=== PATIENT | female | born 1970 | race Caucasian/White ===

== ENCOUNTER → 2018-08-10 14:16 | Outpatient (BNVA) | payer MEDICAID, SELFPAY | PROVIDERS: PCP Family Medicine; Visit Provider Psychiatry & Neurology Neurology | DX: G35 Multiple sclerosis (principal); F44.5 Conversion disorder with seizures or convulsions | CPT/HCPCS: 99213 ==

== ENCOUNTER 2019-01-01 11:08 | Emergency (ER) | payer MEDICAID, SELFPAY ==
[2019-01-01 11:11] VITALS: BP 142/75; PULSE 89; RESP 20; TEMP 36.9; O2SAT 98
--- NOTE | 2019-01-01 11:31 | W.ED.GENAD ---
Discharge Plan Disposition Patient Disposition: HOME Condition: Good Discharge Details Chief Complaint: Orthopedic Clinical Impression: Right ankle sprain, Contusion Primary Care Provider: Megha Khanna ED Provider: Jay Miranda Home Meds and New Rx's Prescriptions: No Action Nexplanon 68 mg implant 1 implant SBD ONCE Qty: 1 RF: 0 lamotrigine [Lamictal] 100 mg tablet 50 mg PO BID Qty: 90 RF: 3 gabapentin 300 mg capsule 300 mg PO BID Qty: 180 RF: 3 cholecalciferol (vitamin D3) 2,000 UNIT tablet 2,500 mg PO DAILY RF: 0 alprazolam 0.5 MG tablet 0.5 mg PO ONCE PRNQty: 2 RF: 0 Discharge Instructions Instructions: Contusion in Adults (ED) Additional Instructions: Your x-ray results are negative for any fracture. I suspect a notable sprain to your Achilles tendon in your ankle. Please use ice, Tylenol, Motrin, and the walking boot as directed. Please use the crutches as needed. if you notice any worsening of your symptoms, or any new symptoms such as vomiting, diarrhea, fever, chills, shortness of breath, chest pain, numbness, weakness, or fainting , please return immediately to the emergency department for reevaluation. Please follow up with your primary care provider as soon as possible for reassessment and reevaluation. As always, it was a pleasure participating in your medical care today. Referrals: Megha Khanna MD [Primary Care Provider] - Medical Decision Making This is a pleasant 48-year-old female who presents for evaluation of right Achilles tendon pain and right ankle pain after getting her foot stuck in a rotating door at work. Exam demonstrates mild erythema and an abrasion over the Achilles tendon, however the tendon is intact. Bedside ultrasound shows no evidence of tendon rupture. Normal movement normal strength for flexion and extension of the gastrocnemius. Mild tenderness over the lateral distal tibia just anterior to it. We will get an x-ray to rule out fracture. I suspect sprain is most likely. Patient will benefit from a walking boot, NSAIDs, and close follow-up 12:06 PM X-ray results per Dr. Kohli are negative for any acute fracture process. I suspect contusion and strain. We will give a walking boot. Recommend continued R.I.C.E. I have extensively reviewed the treatment plan and discharge instructions with the patient. I have addressed all patient concerns at this time. The patient was made aware of what symptoms to monitor for that would warrant a return to the emergency department. Discussed the plan with the patient, they demonstrate verbal understanding and agreement with our assessment and plan at this time. HPI General Date/Time Provider Initiated Documentation: 01/01/19 11:16. HPI Narrative: This is a pleasant 48-year-old female with no significant past medical history who presents today for evaluation of right ankle pain. She states that she was going into work in the [facility] [employer] on the back of her heel, and caused mild inversion of her right ankle. Because of this she had pain, worse with movement and stepping. She denies any numbness or tingling or weakness. She is presented for further evaluation. She denies any pain in the smith or knee. No other complaints or modifying factors. Related Data Home Medications Medication Instructions Recorded Confirmed cholecalciferol (vitamin D3) 2,500 mg PO DAILY 08/24/15 01/01/19 alprazolam 0.5 mg PO ONCE PRN #2 tab 12/22/17 01/01/19 etonogestrel 68 mg subdermal 1 implant SBD ONCE #1 each 08/10/18 01/01/19 implant gabapentin 300 mg capsule 300 mg PO BID #180 cap 08/10/18 01/01/19 lamotrigine 100 mg tablet 50 mg PO BID #90 tab 08/10/18 01/01/19 Previous Rx's Medication Instructions Recorded etonogestrel 68 mg subdermal 1 implant SBD ONCE #1 each 08/10/18 implant gabapentin 300 mg capsule 300 mg PO BID #180 cap 08/10/18 lamotrigine 100 mg tablet 50 mg PO BID #90 tab 08/10/18 Allergies Allergy/AdvReac Type Severity Reaction Status Date / Time latex Allergy Severe Hives Unverified 01/01/19 11:13 General Stated Complaint: Orthopedic CANDELARIA: 3 Review of Systems Review of Systems All systems reviewed & are unremarkable except as noted in HPI and below PFSH Social History Smoking/Tobacco Use Status: Current every day Tobacco Type: cigarettes Alcohol Intake: never Drug use: Never Substance use type: does not use Do you feel safe at home: Yes Do you feel safe in your relationship?: Yes Exam Narrative Exam Narrative: 1.Const: Well-nourished, Well-developed, appearing stated age 2.Eyes: PERRL, no conjunctival injection, and symmetrical lids. 3.ENT: Atraumatic external nose and ears. Moist MM. Neck: Symmetric, trachea midline, No thyromegaly. 4.CVS: +S1/S2, No murmurs or gallops. Peripheral pulses 2+ and equal in all extremities. Brisk capillary refill in all extremities. 5.RESP: Unlabored respiratory effort. Clear to auscultation bilaterally. No wheezes rales or rhonchi 6.GI: Soft, Nontender/Nondistended, No hepatosplenomegaly. No guarding or rebound. 7.MSK: Normocephalic, Extremities w/o deformity. No cyanosis or clubbing, 1 patient's right Achilles tendon demonstrates some erythema on the posterior aspect. No laxity. Normal movement of squeezing of the gastrocnemius, normal plantar dorsiflexion strength. No tenderness over the calcaneus, mild tenderness just anterior to the distal fibula. Mild tenderness over the lateral foot over the ATF. Pulses are normal, capillary refill is brisk. Normal sensation throughout. No other abnormalities. 8.Skin: Warm, Dry. No rashes or lesions. 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 Sensation grossly intact, no focal neurologic deficits. 10.Psych: (AAO) x3. Appropriate mood and affect Course Vital Signs Temperature 36.9 C 01/01/19 11:11 Pulse 89 01/01/19 11:11 Respiratory Rate 20 01/01/19 11:11 Blood Pressure 142/75 H 01/01/19 11:11 Pulse Oximetry 98 01/01/19 11:11 Temperature 36.9 C 01/01/19 11:11 Temperature Source Temporal Artery Scan 01/01/19 11:11 Pulse 89 01/01/19 11:11 Respiratory Rate 20 01/01/19 11:11 Respiratory Effort Non-Labored 01/01/19 11:11 Blood Pressure 142/75 H 01/01/19 11:11 Pulse Oximetry 98 01/01/19 11:11 Oxygen Delivery Method Room Air 01/01/19 11:11 Oxygen Flow Rate 0 01/01/19 11:11 Pain Level 8 01/01/19 11:11
--- NOTE | 2019-01-01 11:34 | ED.GENADUL_ITS ---
Discharge Plan Disposition Patient Disposition: HOME Condition: Good Discharge Details Chief Complaint: Orthopedic Clinical Impression: Right ankle sprain, Contusion Primary Care Provider: Megha Khanna ED Provider: Jay Miranda Home Meds and New Rx's Prescriptions: No Action Nexplanon 68 mg implant 1 implant SBD ONCE Qty: 1 RF: 0 lamotrigine [Lamictal] 100 mg tablet 50 mg PO BID Qty: 90 RF: 3 gabapentin 300 mg capsule 300 mg PO BID Qty: 180 RF: 3 cholecalciferol (vitamin D3) 2,000 UNIT tablet 2,500 mg PO DAILY RF: 0 alprazolam 0.5 MG tablet 0.5 mg PO ONCE PRNQty: 2 RF: 0 Discharge Instructions Instructions: Contusion in Adults (ED) Additional Instructions: Your x-ray results are negative for any fracture. I suspect a notable sprain to your Achilles tendon in your ankle. Please use ice, Tylenol, Motrin, and the walking boot as directed. Please use the crutches as needed. if you notice any worsening of your symptoms, or any new symptoms such as vomiting, diarrhea, fever, chills, shortness of breath, chest pain, numbness, weakness, or fainting , please return immediately to the emergency department for reevaluation. Please follow up with your primary care provider as soon as possible for reassessment and reevaluation. As always, it was a pleasure participating in your medical care today. Referrals: Megha Khanna MD [Primary Care Provider] - Medical Decision Making This is a pleasant 48-year-old female who presents for evaluation of right Achilles tendon pain and right ankle pain after getting her foot stuck in a rotating door at work. Exam demonstrates mild erythema and an abrasion over the Achilles tendon, however the tendon is intact. Bedside ultrasound shows no evidence of tendon rupture. Normal movement normal strength for flexion and extension of the gastrocnemius. Mild tenderness over the lateral distal tibia just anterior to it. We will get an x-ray to rule out fracture. I suspect sprain is most likely. Patient will benefit from a walking boot, NSAIDs, and close follow-up 12:06 PM X-ray results per Dr. Kohli are negative for any acute fracture process. I suspect contusion and strain. We will give a walking boot. Recommend continued R.I.C.E. I have extensively reviewed the treatment plan and discharge instructions with the patient. I have addressed all patient concerns at this michael e. The patient was made aware of what symptoms to monitor for that would warrant a return to the emergency department. Discussed the plan with the patient, they demonstrate verbal understanding and agreement with our assessment and plan at this time. HPI General Date/Time Provider Initiated Documentation: 01/01/19 11:16 . HPI Narrative: This is a pleasant 48-year-old female with no significant past medical history who presents today for evaluation of right ankle pain. She states that she was going into work in the [email or web address] on the back of her heel, and caused mild inversion of her right ankle. Because of this she had pain, worse with movement and stepping. She denies any numbness or tingling or weakness. She is presented for further evaluation. She denies any pain in the smith or knee. No other complaints or modifying factors. Related Data Home Medications Medication Instructions Recorded Confirmed cholecalciferol (vitamin D3) 2,500 mg PO DAILY 08/24/15 01/01/19 alprazolam 0.5 mg PO ONCE PRN #2 tab 12/22/17 01/01/19 etonogestrel 68 mg subdermal 1 implant SBD ONCE #1 each 08/10/18 01/01/19 implant gabapentin 300 mg capsule 300 mg PO BID #180 cap 08/10/18 01/01/19 lamotrigine 100 mg tablet 50 mg PO BID #90 tab 08/10/18 01/01/19 Previous Rx's Medication Instructions Recorded etonogestrel 68 mg subdermal 1 implant SBD ONCE #1 each 08/10/18 implant gabapentin 300 mg capsule 300 mg PO BID #180 cap 08/10/18 lamotrigine 100 mg tablet 50 mg PO BID #90 tab 08/10/18 Allergies Allergy/AdvReac Type Severity Reaction Status Date / Time latex Allergy Severe Hives Unverified 01/01/19 11:13 General Stated Complaint: Orthopedic CANDELARIA: 3 Review of Systems Review of Systems All systems reviewed & are unremarkable except as noted in HPI and below PFSH Social History Smoking/Tobacco Use Status: Current every day Tobacco Type: cigarettes Alcohol Intake: never Drug use: Never Substance use type: does not use Do you feel safe at home: Yes Do you feel safe in your relationship?: Yes Exam Narrative Exam Narrative: 1.Const: Well-nourished, Well-developed, appearing stated age 2.Eyes: PERRL, no conjunctival injection, and symmetrical lids. 3.ENT: Atraumatic external nose and ears. Moist MM. Neck: Symmetric, trachea midline, No thyromegaly. 4.CVS: +S1/S2, No murmurs or gallops. Peripheral pulses 2+ and equal in all extremities. Brisk capillary refill in all extremities. 5.RESP: Unlabored respiratory effort. Clear to auscultation bilaterally. No wheezes rales or rhonchi 6.GI: Soft, Nontender/Nondistended, No hepatosplenomegaly. No guarding or rebound. 7.MSK: Normocephalic, Extremities w/o deformity. No cyanosis or clubbing, 1 patient's right Achilles tendon demonstrates some erythema on the posterior aspect. No laxity. Normal movement of squeezing of the gastrocnemius, normal plantar dorsiflexion strength. No tenderness over the calcaneus, mild tenderness just anterior to the distal fibula. Mild tenderness over the lateral foot over the ATF. Pulses are normal, capillary refill is brisk. Normal sensation throughout. No other abnormalities. 8.Skin: Warm, Dry. No rashes or lesions. 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 Sensation grossly intact, no focal neurologic deficits. 10.Psych: (AAO) x3. Appropriate mood and affect Course Vital Signs Temperature 36.9 C 01/01/19 11:11 Pulse 89 01/01/19 11:11 Respiratory Rate 20 01/01/19 11:11 Blood Pressure 142/75 H 01/01/19 11:11 Pulse Oximetry 98 01/01/19 11:11 Temperature 36.9 C 01/01/19 11:11 Temperature Source Temporal Artery Scan 01/01/19 11:11 Pulse 89 01/01/19 11:11 Respiratory Rate 20 01/01/19 11:11 Respiratory Effort Non-Labored 01/01/19 11:11 Blood Pressure 142/75 H 01/01/19 11:11 Pulse Oximetry 98 01/01/19 11:11 Oxygen Delivery Method Room Air 01/01/19 11:11 Oxygen Flow Rate 0 01/01/19 11:11 Pain Level 8 01/01/19 11:11
--- NOTE | 2019-01-01 11:46 | DI.RAD_ITS ---
SYMPTOM/DIAGNOSIS: SPRAIN, PAIN RIGHT ANKLE: Three views. No acute soft tissue, bone or joint abnormality is identified.
[2019-01-01 16:31] VITALS: BP 142/75; PULSE 89; RESP 20; TEMP 36.9; O2SAT 98
== END 2019-01-01 12:32 | disposition home or self-care (01) ==
LOC: ER 12:24
PROVIDERS: Emergency Provider Student in an Organized Health Care Education/Training Program; PCP Family Medicine
DX: S93.401A Sprain of unspecified ligament of right ankle, initial encounter (principal); X50.1XXA Overexertion from prolonged static or awkward postures, initial encounter
CPT/HCPCS: 29515; 99283; 73610; 99282; E0114; L4361

== ENCOUNTER 2020-09-08 14:34 | Outpatient (REF) | payer MEDICAID, SELFPAY ==
--- NOTE | 2020-09-08 10:45 | PAPFT_PTH ---
PATIENT: Nichole Alvarenga LOC: [facility]#:[id number] AGE/SX: 49/F ROOM: RE09/08/[address]: Megha Khanna : 1970 BED: DIS: 09/08/2020 SPEC #: [id number] RECD: 09/08/20 16:27 STATUS: NATHALIE REFarooq #: [id number] RIVERA: 09/08/20 10:[address]: Megha Khanna DEPT: [facility] Cytology RECD BY: Rosa Fuentes Tissues: 1 - CX/ENDOCX FOR PAP SMEARS Procedures: PAP THIN PREP/UVM Screening HPV DNA PROBE Comments: [id number] (CHLAMYDIA/GC) (HPV 16 & 18/45)
[2020-09-11 15:28] LABS: Chlamydia Result Negative (Negative); GC Result Negative (Negative)
== END 2020-09-08 14:35 | disposition home or self-care (01) ==
LOC: NCHCN 14:34
PROVIDERS: PCP Family Medicine; Visit Provider Family Medicine
DX: N76.0 Acute vaginitis (principal); Z12.4 Encounter for screening for malignant neoplasm of cervix; Z11.51 Encounter for screening for human papillomavirus (HPV); R87.810 Cervical high risk human papillomavirus (HPV) DNA test positive
CPT/HCPCS: 87491; 87591; 88142; 87480; 87510; 87624; 87660

== ENCOUNTER 2021-03-30 12:39 | Outpatient (REF) | payer MEDICAID, SELFPAY ==
[2021-03-30 17:35] LABS: ALT 20 U/L (14-59); AST 16 U/L (15-37); Albumin 3.1 g/dL (3.4-5.0); Alkaline Phosphatase 16 U/L (46-116); Anion Gap 9.6 mmol/L (3-11); BUN 12 mg/dL (7-18); Bilirubin, Direct 0.1 mg/dL (0.0-0.2); Bilirubin, Total 0.3 mg/dL (0.2-1.0); CO2 28.4 mmol/L (21.0-32.0); CREATININE 1.1 mg/dL (0.55-1.02); Calcium 8.7 mg/dL (8.5-10.1); Chloride 98 mmol/L (98-107); Estimated GFR 53.01 (mL/min/1.73m2); Glucose 91 mg/dL (74-106); Potassium 3.9 mmol/L (3.5-5.1); Sodium 136 mmol/L (136-145); Total Protein 7.6 g/dL (6.4-8.2)
== END 2021-03-30 12:40 | disposition home or self-care (01) ==
LOC: LBN 12:39
PROVIDERS: PCP Family Medicine; Visit Provider Physician Assistant Medical
DX: R10.31 Right lower quadrant pain (principal); R06.09 Other forms of dyspnea
CPT/HCPCS: 80048; 80076; 85027; 85379; 87086

== ENCOUNTER 2021-03-30 12:51 | Outpatient (CLI) | payer MEDICAID, SELFPAY ==
--- NOTE | 2021-03-30 14:02 | DI.RAD_ITS ---
Exam(s) XR CHEST 2V PA LATERAL EXAM: XR CHEST 2V PA LATERAL CLINICAL HISTORY: MONTH-LONG COUGH, R05 TECHNIQUE: 2D digital imaging was performed. COMPARISON: CR CHEST 2 VIEWS PA,LAT from 10/11/2016 FINDINGS: MEDIASTINUM: Normal. HEART: Normal. PULMONARY VASCULATURE: Normal. LUNGS: Hyperinflation. New left upper lobe density suspicious for infiltrate. PLEURAL SPACE: No pleural effusion or pneumothorax. BONE:Unremarkable for age. IMPRESSION: Left upper lobe infiltrate. Follow-up is recommended following treatment. DATA REPOSITORY: RADIATION DOSE DELIVERED:
== END 2021-03-30 13:11 ==
PROVIDERS: PCP Family Medicine; Visit Provider Physician Assistant Medical
DX: R05 Cough (principal); R91.8 Other nonspecific abnormal finding of lung field
CPT/HCPCS: 71046

== ENCOUNTER 2021-03-30 13:15 | Outpatient (REF) | payer MEDICAID, SELFPAY ==
[2021-03-31 10:25] LABS: COVID-19 RT-PCR UVMMC Result Negative (Negative)
== END 2021-03-30 13:16 | disposition home or self-care (01) ==
LOC: LBN 13:15
PROVIDERS: PCP Family Medicine; Referring Provider Physician Assistant Medical; Visit Provider Physician Assistant Medical
DX: Z20.822 Contact with and (suspected) exposure to COVID-19 (principal); J06.9 Acute upper respiratory infection, unspecified
CPT/HCPCS: U0003

== ENCOUNTER 2021-04-02 02:27 | Outpatient (CLI) | payer MEDICAID, SELFPAY ==
--- NOTE | 2021-04-02 | DI.US_ITS ---
Exam(s) US ABDOMEN RENAL EXAM: US ABDOMEN RENAL CLINICAL HISTORY: FLANK PAIN RT, R10.9, RT ABD PAIN, ? KIDNEY STONE VS TECHNIQUE: Ultrasound abdomen performed using standard protocol. COMPARISON: CT CHEST ABD PELVIS WITH CONTRAST from 10/07/2013 CT CHEST ABD PELVIS WITH CONTRAST from 10/07/2013 FINDINGS: LIVER: Elongated left lobe. Normal size and echogenicity. No focal liver lesions are seen.. GALLBLADDER: Contracted. Recent medial. No evidence of cholelithiasis. No evidence of wall thickeni ng. No pericholecystic fluid identified. BROWN'S SIGN: Negative. BILIARY SYSTEM: No intrahepatic or extrahepatic biliary ductal dilation. KIDNEYS: Kidneys are symmetric in size. Right kidney measures 10.1 cm in length and is unremarkable. . The left measures 10.5 cm in length. No evidence of renal calculi. There are 2 small simple cysts on the left kidney. There is a question of prominence of the left renal collecting system versus pa rapelvic cyst. There is also a question of a cyst versus mass at the upper pole measuring 2.5 cm in diameter. PANCREAS: Normal where visualized. SPLEEN: Not enlarged. ABDOMINAL AORTA AND IVC: Visualized portions normal caliber. ASCITES: None seen. Bladder: Prevoid volume 66 cc. Postvoid residual 5 cc. Both ureteral jets were visualized. No mass or stones. IMPRESSION: Question of mass versus cyst at the upper pole of the left kidney. CT recommended for further evalua tion. No renal calculi visible. Contracted gallbladder. DATA REPOSITORY:
== END 2021-04-02 02:47 ==
PROVIDERS: PCP Family Medicine; Visit Provider Physician Assistant Medical
DX: R10.9 Unspecified abdominal pain (principal); R93.5 Abnormal findings on diagnostic imaging of other abdominal regions, including retroperitoneum
CPT/HCPCS: 76770; 76700

== ENCOUNTER 2021-04-09 01:01 | Outpatient (CLI) | payer MEDICAID, SELFPAY ==
--- NOTE | 2021-04-09 | DI.CT_ITS ---
Exam(s) CT ABDOMEN WO/W EXAM: CT ABDOMEN WO/W CLINICAL HISTORY: RENAL MASS, N28.89 TECHNIQUE: COMPARISON: US US ABDOMEN RENAL from 04/02/2021 US US ABDOMEN RENAL from 04/02/2021 FINDINGS: As per request, this study was limited to the abdomen. The pelvis was not scanned. Visualized lung bases: There is a pleural based noncalcified nodule in the anterior basal segment lef t lower lobe measuring 4 x 4 millimeters. There is also another similar size nodule partially includ ed on the uppermost image of this study in the right lower lobe. There is no ascites in the upper abdomen. No focal hepatic lesions nor dilatation of intrahepatic du cts. No obvious gallbladder pathology. CBD is not dilated. Pancreas unremarkable. No mass nor [place] creatic calcifications nor dilatation of the pancreatic duct. Spleen size is normal. Splenic and po rtal veins are patent. There are no adrenal masses. Abdominal aorta is not enlarged. No para-aorti c adenopathy. Retroaortic left renal vein is seen, this evident in approximately 5 percent of the [facility] population. KIDNEYS: There is a small 8 x 8 millimeter benign cyst in the inferior pole of the left kidney. High er up in the left kidney there is a well-defined homogeneous density 2.6 by 2.2 by 2.8 cm density david r the upper pole region in the lateral cortex which exhibits uniform density but this density registe red too high to be a simple cyst, averaging 63 Hounsfield units it may be a hemorrhagic cyst or possi kevin more concerning pathology. This left kidney finding does not contain internal nor peripheral brandee cification. There is a small 5 millimeter benign cyst in the superior pole of the opposite-right kidney. There a re no consistent filling defects within the renal infundibulum I and renal pelves and the visualized upper ureters are not dilated. Anterior abdominal wall exhibits a small fat containing abdominal wall hernia. No bowel loops therei n. No obvious bowel obstruction. Osseous: No lytic nor blastic lesions evident within the field of view of this study. IMPRESSION: 1. In addition to small bilateral benign renal cysts, there is a larger 26 x 22 x 28 millimeter well- defined homogeneous appearing density in the upper pole the left kidney which exhibits Hounsfield uni ts above that of a simple benign cyst. This does not contain obvious septations nor calcifications. May represent a hemorrhagic cyst but nevertheless requires close follow-up. Recommend urology consu ltation. 2. Uppermost images of this abdominal study reveal a small noncalcified nodule in each lung base as d escribed above. Consider chest CT scan follow-up.
[2021-04-09] MEDS: Omnipaque 350 MG/ML 100 ML BTL 70 ML IJ (16:03)
[2021-04-09] MEDS: Normal Saline Flush 10 ML SYR IVP (16:04)
== END 2021-04-09 01:21 ==
PROVIDERS: PCP Family Medicine; Visit Provider Nurse Practitioner Family
DX: N28.89 Other specified disorders of kidney and ureter (principal); R91.8 Other nonspecific abnormal finding of lung field; N28.1 Cyst of kidney, acquired
CPT/HCPCS: 74170; J3490

== ENCOUNTER 2021-05-13 07:38 | Emergency (ER) | payer MEDICAID, SELFPAY ==
[2021-05-13] VITALS (26 sets, daily range): BP systolic 134–156; BP diastolic 65–93; PULSE 71–97; RESP 9–20; TEMP 36.9; O2SAT 97–100
--- NOTE | 2021-05-13 07:30 | RT.EKG_ITS ---
APPROVED REPORT Exam: Resting ECG Reason for Exam: sob Patient Location: E HR:81 bpm ECG Measurements Heart Rate 81 AXIS IA 135 P 76 QRSd 82 QRS 78 QT 386 T 61 QTc 449 Conclusion Sinus rhythm...normal P axis, V-rate 60- 99 Atrial premature complex...SV complex w/ short R-R interval. Sinus. PACs. No STEMI. I have reviewed and interpreted ECG and agree with software generated interpretation.
--- NOTE | 2021-05-13 07:58 | ED.GENADUL_ITS ---
Discharge Plan Disposition Patient Disposition: HOME Condition: Improving Discharge Details Clinical Impression: Acute exacerbation of chronic obstructive pulmonary disease, Multiple lung nodules on CT, Left renal mass Primary Care Provider: Megha Khanna ED Provider: Kathleen Chew Home Meds and New Rx's Prescriptions: New prednisone 20 mg tablet See Rx Instructions .ROUTE .COMPLEX Qty: 18 RF: 0 albuterol sulfate 90 mcg/actuation aerosol powdr breath activated 2 inh IH Q6H PRN (Reason: shortness of breath or wheezing) Qty: 1 RF: 0 doxycycline hyclate 100 mg tablet 100 mg PO BID 7 Days Qty: 14 RF: 0 Continued Nexplanon 68 mg implant 1 implant SBD ONCE Qty: 1 RF: 0 lamotrigine [Lamictal] 100 mg tablet 50 mg PO BID Qty: 90 RF: 3 gabapentin 300 mg capsule 300 mg PO BID Qty: 180 RF: 3 alprazolam 0.5 MG tablet 0.5 mg PO ONCE PRNQty: 2 RF: 0 cholecalciferol (vitamin D3) 50 mcg (2,000 unit) tablet 2,000 unit PO DAILY RF: 0 betamethasone dipropionate 0.05 % ointment 1 applic topical BID RF: 0 Discharge Instructions Instructions: COPD (Chronic Obstructive Pulmonary Disease) (ED), Pulmonary Nodules (ED) Additional Instructions: Your blood work and EKG are reassuring and did not note any evidence of acute significant findings today. Your CT scan noted multiple lung nodules and again noted a left kidney mass. Call Dr. Khanna's office tomorrow morning to discuss your CT scan lung findings with plan for repeat CT scan in 3 to 6 months or if it is recommended that you follow-up with a specialist for potential biopsy. Follow-up with your planned MRI this week for further evaluation of your left kidney mass. Drink plenty of fluids and get plenty of rest. Prescriptions for steroids, an inhaler and an antibiotic have been sent electronically to your pharmacy. Start the steroid prescription tomorrow. Use the inhaler as needed and directed for shortness of breath. You can hold on taking the antibiotic unless you develops fever, productive cough or worsening shortness of breath. Also discuss with Dr. Khanna any recommendations regarding help with quitting smoking. You can try [id number] patches, gum or inhaler as well. Return immediately to the emergency department if you develop any worsening or new concerning symptoms. Discharge Data Discharge Physician: Kathleen Chew Medical Decision Making 50-year-old female who is a chronic tobacco smoker with a history of multiple sclerosis presents with 2 months of dry cough, shortness of breath and left lower rib pain. Blood pressure hypertensive, remainder vitals within normal limits. EKG has a rate 81, sinus, PACs, no STEMI. Patient appears comfortable and nontoxic. She has reproducible left lower rib pain. Lungs clear throughout. No leg swelling. Differential diagnosis includes recurrent pneumonia, chest wall pain secondary to coughing, consideration for chronic obstructive pulmonary disease. Also consider PE. Will place an IV, bolus IV fluids, screening labs, CT chest abdomen pelvis and give albuterol, Solu-Medrol and Toradol and reassess. No acute labs and imaging reviewed. Normal white blood cell count. Hemoglobin 13. Normal electrolytes. Troponin negative. Lipase normal. Covid negative. CT chest notes: IMPRESSION: 1. Baseline COPD. 2. Multifocal lung parenchymal nodules or infiltrates. The should be followed to complete resolution to ensure that there is not underlying neoplastic change. Follow-up CT scan at 3-6 months recommended pursed Fleischner criteria. If neoplastic change remains a clinical concern soft tissue sampling may be warranted. 3. Right hilar adenopathy which could be neoplastic or reactive. CT abdomen and pelvis notes: IMPRESSION: Left renal mass not clearly a simple cyst. Further characterization with ultrasound warrants consideration. Soft tissue sampling may also warrant consideration. Results discussed with patient at bedside. She does feel better after medication and DuoNeb here. Patient has a follow-up appointment with her PCP Dr. Khanna this week and has a scheduled MRI soon for further evaluation of her left renal mass. Discussed that she is recommended to discuss her CT findings further with Dr. Khanna regarding how to proceed, whether it is recommended to have a biopsy of the lung nodules sooner than later. Discussed options for smoking cessation. Discussed that her symptom presentation could be due to her lung findings or potentially a COPD exacerbation or a combination of both. Her presentation does not appear consistent with pneumonia as she has no fever, productive cough, normal white blood cell count with normal heart rate and oxygen saturation. Considering she is a smoker, will send prescriptions for inhaler, steroids and antibiotics if needed electronically to her pharmacy. Usual and customary return precautions given prior to discharge. Medical Records Medical records reviewed: Yes I reviewed the patient's medical records. Imaging Data Radiologic Study: Radiologist's impression: CTA Chest With Contrast Exam date and time: 05/13/2021 8:21 AM Age: 50 years old Clinical indication: Other: Left lower rib pain, R/O pneumonia, pe, recent cyst of left kidney TECHNIQUE: Imaging protocol: Computed tomographic angiography of the chest with contrast. 3D rendering (Not supervised by radiologist): MIP and/or 3D reconstructed images were created by the technologist. Radiation optimization: All CT scans at this facility use at least one of these dose optimization techniques: automated exposure control; mA and/or kV adjustment per patient size (includes targeted exams where dose is matched to clinical indication); or iterative reconstruction. Contrast material: OMNIPAQUE 350; Contrast volume: 99 ml; Contrast route: INTRAVENOUS (IV); Other technique: < COMPARISON: CR XR CHEST 2V PA LATERAL 03/30/2021 1:57 PM FINDINGS: Pulmonary arteries: Normal. No pulmonary emboli. Aorta: Unremarkable. No aortic aneurysm. No aortic dissection. Lungs: There is baseline COPD. There are multifocal nodules or infiltrates in both lungs.there is a noncalcified nodule in the right lower lobe, measuring 6 mm, image 102 series 5.. There is slight thickening of the interstitium adjacent to the nodule suggesting that this could be a nodular infiltrate. There is a noncalcified nodule in the right lung apex, measuring 7 mm, image number 78 series 9. There is a dense right lower lobe infiltrate or spiculated mass in the superior segment of the right lower lobe measuring 60 x 40 mm, image number 59 series 11; There is a noncalcified 7 mm nodule, in the left lateral CP angle image 542 series 9. There is a noncalcified lobulated mass or area of nodular scarring or infiltrate in the left upper lobe, measuring 24 by 8 mm, image number 208 series 9. Pleural spaces: There is bilateral right greater than left apical pleuroparenchymal thickening. Heart: Unremarkable. No cardiomegaly. No pericardial effusion. Lymph nodes: There is right hilar adenopathy, short axis dimension 15 mm, image 255 series 10; There is a 2nd right hilar lymph node, short axis 11 mm image 306 series 10. There is a subcarinal lymph node measuring 11 mm short axis dimension image 295 series 10. Bones/joints: Unremarkable. No acute fracture. Soft tissues: Unremarkable. IMPRESSION: 1. Baseline COPD. 2. Multifocal lung parenchymal nodules or infiltrates. The should be followed to complete resolution to ensure that there is not underlying neoplastic change. Follow-up CT scan at 3-6 months recommended pursed Fleischner criteria. If neoplastic change remains a clinical concern soft tissue sampling may be warranted. 3. Right hilar adenopathy which could be neoplastic or reactive. CT Abdomen And Pelvis With Contrast Exam date and time: 05/13/2021 8:21 AM Age: 50 years old Clinical indication: Other: Left lower rib pain, R/O pneumonia, pe, recent cyst of left kidney TECHNIQUE: Imaging protocol: Computed tomography of the abdomen and pelvis with contrast. Radiation optimization: All CT scans at this facility use at least one of these dose optimization techniques: automated exposure control; mA and/or kV adjustment per patient size (includes targeted exams where dose is matched to clinical indication); or iterative reconstruction. Contrast material: OMNIPAQUE 350; Contrast volume: 99 ml; Contrast route: INTRAVENOUS (IV); COMPARISON: CR XR CHEST 2V PA LATERAL 03/30/2021 1:57 PM FINDINGS: Liver: Normal. No mass. Gallbladder and bile ducts: Normal. No calcified stones. No ductal dilation. Pancreas: Normal. No ductal dilation. Spleen: Normal. No splenomegaly. Adrenal glands: Normal. No mass. Kidneys and ureters: There is a mass in the upper left kidney measuring 27 x 22 mm, image 51 series 6. Hounsfield units measure 73. This is not a simple cyst. Stomach and bowel: Unremarkable. No obstruction. No mucosal thickening. Stomach and bowel: Unremarkable. No obstruction. No mucosal thickening. Appendix: No evidence of appendicitis. Intraperitoneal space: Unremarkable. No free air. No significant fluid collection. Vasculature: Unremarkable. No abdominal aortic aneurysm. Lymph nodes: Unremarkable. No enlarged lymph nodes. Urinary bladder: Unremarkable as visualized. Reproductive: Unremarkable as visualized. Bones/joints: Unremarkable. No acute fracture. Soft tissues: Unremarkable. IMPRESSION: Left renal mass not clearly a simple cyst. Further characterization with ultrasound warrants consideration. Soft tissue sampling may also warrant consideration. Lab Data Lab results reviewed: Yes I reviewed the patient's lab results. Labs: Laboratory Tests Range/Units 05/13/21 05/13/21 05/13/21 08:00 08:00 09:00 WBC (4.4-10.8) 10^3/uL 7.00 RBC (3.93-5.22) 10^6/uL 4.17 Hgb (11.2-15.7) g/dL 13.7 Hct (36.0-46.0) % 41.7 MCV (80-95) fL 100.0 H MCH (27.0-33.0) pg 32.9 MCHC (32.0-36.0) % 32.9 RDW (11.7-14.6) % 14.4 Plt Count (130-400) 10^3/uL 220 MPV (8.0-11.0) fL 9.7 Immature Gran % 0.3 Neutrophils % 58.6 Lymphocytes % 33.6 Monocytes % 6.3 Eosinophils % 0.6 Basophils % 0.6 Nucleated RBC % % 0 Absolute Neutrophils (1.2-6.7) 10^3/uL 4.11 Absolute Lymphocytes (1.2-3.4) 10^3/uL 2.35 Absolute Monocytes (0.1-0.8) 10^3/uL 0.44 Absolute Eosinophils (0.0-0.7) 10^3/uL 0.04 Absolute Basophils (0.0-0.2) 10^3/uL 0.04 Sodium (136-145) mmol/L 141 Potassium (3.5-5.1) mmol/L 4.1 Chloride (98-107) mmol/L 105 Carbon Dioxide (21.0-32.0) mmol/L 31.3 Anion Gap (3-11) mmol/L 4.7 BUN (7-18) mg/dL 13 Creatinine (0.55-1.02) mg/dL 1.0 Estimated GFR/1.73 m2 (mL/min/1.73m2) 59.18 Glucose (74-106) mg/dL 98 Calcium (8.5-10.1) mg/dL 9.2 Magnesium (1.8-2.4) mg/dL 1.9 Total Bilirubin (0.2-1.0) mg/dL 0.8 AST (15-37) U/L 19 ALT (14-59) U/L 17 Alkaline Phosphatase (46-116) U/L 27 L Troponin I (<0.06) ng/mL < 0.05 Total Protein (6.4-8.2) g/dL 7.5 Albumin (3.4-5.0) g/dL 3.8 Lipase (73-393) U/L 96 COVID-19 Source Nasal/Nares ECG Data Attestation: I personally reviewed and interpreted this ECG (s) as follows: Interpretation: Rate of 81, sinus, no acute ST elevation or depression. TX 135. QTc 449. HPI General Mode of arrival: ambulatory . Date/Time Provider Initiated Documentation: 05/13/21 07:57 . Limitations to Documentation: no limitations . Information obtained by: patient . HPI Narrative: Pt is a 50-year-old female who is a chronic tobacco smoker with a history of multiple sclerosis presents with 2 months of shortness of breath, cough and left lower rib pain. Patient was seen at the [facility] at the end of February and diagnosed with pneumonia and treated with 5 days of antibiotics. She states the symptoms improved but did not completely resolve. Patient states she smokes 1 pack of cigarettes daily. She denies any alcohol or drug use. She states she had a fever 2 months ago, T-max of 101 but not since then. She states she has had a normal appetite. She has been tested twice for Covid since onset of symptoms that have been negative. She states in the summer she had right upper quadrant pain and had a negative ultrasound but was noted to have a potential mass in the kidney that was referred for outpatient abdominal CT which noted a benign cyst in her left kidney. She states she has a follow-up appoint with her primary care doctor this Friday for these results with plan for potential MRI of her kidney for further evaluation. Patient denies any known exposure to Covid and states she is fully vaccinated. She denies anterior chest pain, nausea, vomiting, diarrhea, leg pain or swelling, recent travel or recent surgery. Related Data Home Medications Medication Instructions Recorded Confirmed alprazolam 0.5 mg PO ONCE PRN #2 tab 12/22/17 05/13/21 etonogestrel 68 mg subdermal 1 implant SBD ONCE #1 each 08/10/18 05/13/21 implant gabapentin 300 mg capsule 300 mg PO BID #180 cap 08/10/18 05/13/21 lamotrigine 100 mg tablet 50 mg PO BID #90 tab 08/10/18 05/13/21 betamethasone dipropionate 0.05 % 1 applic TOPICAL BID 09/07/20 05/13/21 topical ointment cholecalciferol (vitamin D3) 50 2,000 unit PO DAILY tab 09/07/20 05/13/21 mcg (2,000 unit) tablet albuterol sulfate 2 inh IH Q6H PRN #1 each 05/13/21 doxycycline hyclate 100 mg PO BID 7 Days #14 tab 05/13/21 prednisone See Rx Instructions .ROUTE 05/13/21 .COMPLEX #18 tab Previous Rx's Medication Instructions Recorded etonogestrel 68 mg subdermal 1 implant SBD ONCE #1 each 08/10/18 implant gabapentin 300 mg capsule 300 mg PO BID #180 cap 08/10/18 lamotrigine 100 mg tablet 50 mg PO BID #90 tab 08/10/18 albuterol sulfate 2 inh IH Q6H PRN #1 each 05/13/21 doxycycline hyclate 100 mg PO BID 7 Days #14 tab 05/13/21 prednisone See Rx Instructions .ROUTE 05/13/21 .COMPLEX #18 tab Allergies Allergy/AdvReac Type Severity Reaction Status Date / Time latex Allergy Severe Hives Unverified 01/01/19 11:13 General Stated Complaint: RespSymp CANDELARIA: 3 Review of Systems All systems reviewed & are unremarkable except as noted in HPI and below Constitutional Constitutional: Reports as per HPI, Denies chills and Denies fever(s) Eyes Eyes: Denies blurry vision ENT Ears, Nose, Mouth, and Throat: Denies dizziness, Denies sore throat and Denies throat swelling Cardiovascular Cardiovascular: Denies chest pain and Reports dyspnea Respiratory Respiratory: Denies cough and Reports dyspnea Gastrointestinal Gastrointestinal: Denies abdominal pain, Denies diarrhea and Denies vomiting Genitourinary Genitourinary: Denies hematuria and Denies dysuria Musculoskeletal Musculoskeletal: Denies back pain and Denies numbness Integumentary/Breasts Skin/Breast: Denies lesions and Denies rash Neurologic Neurologic: Denies dizziness, Denies localized weakness and Denies numbness Allergic/Immunologic Allergic/Immunologic: Denies throat swelling [facility] Medical History (Updated 05/13/21 @ 10:20 by Kathleen Chew DO) Multiple sclerosis (10/18/15) Surgical History (Updated 05/13/21 @ 08:23 by Kathleen Chew DO) H/O wisdom tooth extraction Social History (Updated 08/10/18 @ 14:29 by Lexy Bermeo LPN) Smoking/Tobacco Use Status: Current every day Tobacco Type: cigarettes Smoking risk assessment performed?: Yes Alcohol Intake: current Alcohol Intake frequency: a few times a month Drug use: Never Substance use type: does not use Do you feel safe at home: Yes Do you feel safe in your relationship?: Yes Exam Const General: cooperative, healthy appearing and no acute distress HENMT Head: normal to inspection Ears: hearing grossly normal bilaterally, external ears normal and TM's normal bilaterally General nose exam: external nose normal Face and sinus: normal facial exam Throat: posterior oropharynx normal Eyes General: appearance normal, both eyes and all related structures Pupils: PERRL EOM: EOM intact bilaterally Neck Neck: normal visual inspection and No submandibular swelling Lymphatic: no lymphadenopathy noted Chest Chest: normal inspection of the chest and no tenderness Chest/axillae images: 1. Localized area of tenderness palpation to left anterior and lateral inferior ribs. No rash, lesions, crepitus, step-off or trauma noted. Resp Effort & Inspection: normal respiratory effort and able to speak in complete sentences Auscultation: clear to auscultation bilaterally Cardio Rate: regular rate Rhythm: regular rhythm GI Inspection: normal to inspection Palpation: soft, not firm, not rigid and nontender Auscultation: normal bowel sounds Skin General skin exam: no rashes or lesions noted Neuro General: patient alert, patient awake and patient oriented x3 Cognition: normal cognition Speech: speech normal Motor: muscle tone normal throughout Sensory Exam: no sensory deficits noted Extrem General: normal to inspection, full ROM, capillary refill normal, no calf tenderness bilaterally and no edema Psych Appearance: grossly normal Mental Status: mental status grossly normal Speech and Movement: speech and movement normal Affect: normal affect Course Vital Signs Vital signs: Vital Signs Temperature 98.4 F 05/13/21 07:48 Pulse 91 H 05/13/21 07:48 Respiratory Rate 18 05/13/21 07:48 Blood Pressure 153/82 H 05/13/21 07:48 Pulse Oximetry 99 05/13/21 07:48 Temperature 98.4 F 05/13/21 07:48 Temperature Source Temporal Artery Scan 05/13/21 07:48 Pulse 91 H 05/13/21 07:48 Respiratory Rate 18 05/13/21 07:48 Blood Pressure 153/82 H 05/13/21 07:48 Blood Pressure Position Sitting 05/13/21 07:48 Pulse Oximetry 99 05/13/21 07:48 Oxygen Delivery Method Room Air 05/13/21 07:48 Oxygen Flow Rate 0 05/13/21 07:48
--- NOTE | 2021-05-13 08:15 | DI.CT_ITS ---
Exam(s) CT CHEST PE ABD PELVIS W EXAM: CT CHEST PE ABD PELVIS W CLINICAL HISTORY: L lower rib pain, r/o pneumonia, PE. TECHNIQUE: Imaging Protocol: Axial CT angiography was performed with multi-slice acquisition and m ulti-planar and/or 3D reconstructions. CONTRAST MATERIAL: Intravenous: Omnipaque 350 Contrast volume:99 ml Oral: no COMPARISON: CT CHEST ABD PELVIS WITH CONTRAST from 10/07/2013 CT CHEST ABD PELVIS WITH CONTRAST from 10/07/2013 CR XR CHEST 2V PA LATERAL from 03/30/2021 CR XR CHEST 2V PA LATERAL from 03/30/[address] ABDOMEN WO/W from 04/09/2021 FINDINGS: CHEST: Pulmonary Arteries: No evidence of filling defect to suggest pulmonary emboli. Tracheobronchial tree: Patent where visualized. Mediastinum and Jacqueline: Small right superior hilar lymph node, likely reactive. Pulmonary parenchyma: Evaluation of the pulmonary parenchyma is somewhat limited due to respiratory m otion. Underlying osnc-in-kaaijwvz centrilobular emphysema. Scarring right lung apex. Posterior in filtrate right lower lobe. Bilateral ground-glass infiltrates bilateral upper lobes. Stable 6 mami meter nodule right lower lobe. 6 millimeter nodule left costophrenic angle appears more prominent wh en compared with the previous exam are measured 3 millimeters. Pleura: No effusion or pneumothorax. Heart: The heart is not dilated. No coronary artery calcifications are seen. Aorta: Thoracic aorta non-dilated. Bones: Normal. Tubes, Catheters, and Lines: ABDOMEN AND PELVIS: Abdomen: Celiac axis/mesenteric arteries: No evidence of occlusion or significant stenosis. Renal Arteries: No evidence of occlusion or significant stenosis. There is a single renal artery per fusing each kidney. Aorta: No evidence of occlusion or significant stenosis. No aneurysm or dissection. Pelvis: Iliac Arteries: No evidence of occlusion or significant stenosis. Common Femoral Arteries: No evidence of occlusion or significant stenosis. ABDOMEN: Liver: Normal density. No measurable mass. Portal, Superior Mesenteric, and Splenic Veins: Unremarkable. Gallbladder and Biliary Tract: No radiodense calculus or dilation. Pancreas: Normal density, no abnormal calcifications or inflammatory process. Spleen: Normal. Adrenals: No masses seen. Kidneys: Normal size, contour and axis. No radiodense stones or obstructive uropathy. Stable hyperden se cyst upper pole left kidney. Small simple cyst lower pole left kidney. Bowel: Moderate to increased stool. No obstruction or bowel wall thickening. Appendix is unremarkabl e. Peritoneal Cavity: No ascites, collection or mesenteric inflammatory response. Lymph Nodes: Within normal limits. Bones: Unremarkable. Soft Tissues: Unremarkable. PELVIS: Bladder: Symmetric distention, no gross wall thickening. Reproductive Organs: Unremarkable as visualized. Lymph Nodes: Within normal limits. Bones: Within normal limits. IMPRESSION: No evidence of pulmonary emboli. Right lower lobe consolidation. Underlying emphysematous changes and mild bilateral pole upper lobe ground-glass infiltrates. 6 millimeter nodule left costophrenic angle. Recommend three-month follow-up chest CT to evaluate in filtrates as well as nodule. No acute abnormality in the abdomen or pelvis. Stable hyperdense left renal cyst. RADIATION DOSE DELIVERED: 783.31mGy.cm Total DLP DATA REPOSITORY: All CT scans at this facility are submitted to the National Radiology Data Registry (NRDR) Dose Index Registry (DIR) with the [employer] ([employer]). RADIATION OPTIMIZATION: All CT scans at this facility use at least one of these dose optimization te chniques: automated exposure control; mA and/or kV adjustment per patient size (includes targeted exa ms where dose is matched to clinical indication); or iterative reconstruction.
[2021-05-13 08:22] LABS: Abs Immature Grans 0.02 10^3/uL (0.0-0.06); Absolute Basophil Count 0.04 10^3/uL (0.0-0.2); Absolute Eosinophil Count 0.04 10^3/uL (0.0-0.7); Absolute Lymphocyte Count 2.35 10^3/uL (1.2-3.4); Absolute Monocyte Count 0.44 10^3/uL (0.1-0.8); Absolute Neutrophil Count 4.11 10^3/uL (1.2-6.7); Basophils % 0.6; Eosinophils % 0.6; HCT 41.7 % (36.0-46.0); HGB 13.7 g/dL (11.2-15.7); Immature Grans % 0.3; Lymphocytes % 33.6; MCH 32.9 pg (27.0-33.0); MCHC 32.9 % (32.0-36.0); MPV 9.7 fL (8.0-11.0); Monocytes % 6.3; Neutrophils % 58.6; Nucleated RBC 0 %; Platelet Count 220 10^3/uL (130-400); RBC 4.17 10^6/uL (3.93-5.22); RDW 14.4 % (11.7-14.6); RDW-SD 53.6 fL
[2021-05-13] MEDS: Normal Saline - Diluent 50 ML VIAL IV (08:33)
[2021-05-13] MEDS: Normal Saline Flush 10 ML SYR IVP (08:35)
[2021-05-13 08:40] LABS: ALT 17 U/L (14-59); AST 19 U/L (15-37); Albumin 3.8 g/dL (3.4-5.0); Alkaline Phosphatase 27 U/L (46-116); Anion Gap 4.7 mmol/L (3-11); BUN 13 mg/dL (7-18); Bilirubin, Total 0.8 mg/dL (0.2-1.0); CO2 31.3 mmol/L (21.0-32.0); Calcium 9.2 mg/dL (8.5-10.1); Chloride 105 mmol/L (98-107); Estimated GFR 59.18 (mL/min/1.73m2); Glucose 98 mg/dL (74-106); Lipase 96 U/L (73-393); Magnesium 1.9 mg/dL (1.8-2.4); Potassium 4.1 mmol/L (3.5-5.1); Sodium 141 mmol/L (136-145); Total Protein 7.5 g/dL (6.4-8.2); Troponin I < 0.05 ng/mL (<0.06)
[2021-05-13] MEDS: Omnipaque 350 MG/ML 100 ML BTL 99 ML IJ (08:45)
[2021-05-13 09:06] LABS: Source Nasal/Nares
[2021-05-13] MEDS: Normal Saline 500 ML IV (09:07)
[2021-05-13] MEDS: methylPREDNISolone SUCC 125 MG VIAL IVP (09:08)
[2021-05-13] MEDS: Ketorolac 30 MG/ML VIAL IVP (09:08)
[2021-05-13] MEDS: Albuterol/Ipratropium 3 ML UPD VIAL UPD (09:08)
--- NOTE | 2021-05-13 09:24 | DI.VRAD_ITS ---
PROCEDURE INFORMATION: Exam: CTA Chest With Contrast Exam date and time: 05/13/2021 8:21 AM Age: 50 years old Clinical indication: Other: Left lower rib pain, R/O pneumonia, pe, recent cyst of left kidney TECHNIQUE: Imaging protocol: Computed tomographic angiography of the chest with contrast. 3D rendering (Not supervised by radiologist): MIP and/or 3D reconstructed images were created by the technologist. Radiation optimization: All CT scans at this facility use at least one of these dose optimization techniques: automated exposure control; mA and/or kV adjustment per patient size (includes targeted exams where dose is matched to clinical indication); or iterative reconstruction. Contrast material: OMNIPAQUE 350; Contrast volume: 99 ml; Contrast route: INTRAVENOUS (IV); Other technique: < COMPARISON: CR XR CHEST 2V PA LATERAL 03/30/2021 1:57 PM FINDINGS: Pulmonary arteries: Normal. No pulmonary emboli. Aorta: Unremarkable. No aortic aneurysm. No aortic dissection. Lungs: There is baseline COPD. There are multifocal nodules or infiltrates in both lungs.there is a noncalcified nodule in the right lower lobe, measuring 6 mm, image 102 series 5.. There is slight thickening of the interstitium adjacent to the nodule suggesting that this could be a nodular infiltrate. There is a noncalcified nodule in the right lung apex, measuring 7 mm, image number 78 series 9. There is a dense right lower lobe infiltrate or spiculated mass in the superior segment of the right lower lobe measuring 60 x 40 mm, image number 59 series 11; There is a noncalcified 7 mm nodule, in the left lateral CP angle image 542 series 9. There is a noncalcified lobulated mass or area of nodular scarring or infiltrate in the left upper lobe, measuring 24 by 8 mm, image number 208 series 9. Pleural spaces: There is bilateral right greater than left apical pleuroparenchymal thickening. Heart: Unremarkable. No cardiomegaly. No pericardial effusion. Lymph nodes: There is right hilar adenopathy, short axis dimension 15 mm, image 255 series 10; There is a 2nd right hilar lymph node, short axis 11 mm image 306 series 10. There is a subcarinal lymph node measuring 11 mm short axis dimension image 295 series 10. Bones/joints: Unremarkable. No acute fracture. Soft tissues: Unremarkable. IMPRESSION: 1. Baseline COPD. 2. Multifocal lung parenchymal nodules or infiltrates. The should be followed to complete resolution to ensure that there is not underlying neoplastic change. Follow-up CT scan at 3-6 months recommended pursed Fleischner criteria. If neoplastic change remains a clinical concern soft tissue sampling may be warranted. 3. Right hilar adenopathy which could be neoplastic or reactive. PROCEDURE INFORMATION: Exam: CT Abdomen And Pelvis With Contrast Exam date and time: 05/13/2021 8:21 AM Age: 50 years old Clinical indication: Other: Left lower rib pain, R/O pneumonia, pe, recent cyst of left kidney TECHNIQUE: Imaging protocol: Computed tomography of the abdomen and pelvis with contrast. Radiation optimization: All CT scans at this facility use at least one of these dose optimization techniques: automated exposure control; mA and/or kV adjustment per patient size (includes targeted exams where dose is matched to clinical indication); or iterative reconstruction. Contrast material: OMNIPAQUE 350; Contrast volume: 99 ml; Contrast route: INTRAVENOUS (IV); COMPARISON: CR XR CHEST 2V PA LATERAL 03/30/2021 1:57 PM FINDINGS: Liver: Normal. No mass. Gallbladder and bile ducts: Normal. No calcified stones. No ductal dilation. Pancreas: Normal. No ductal dilation. Spleen: Normal. No splenomegaly. Adrenal glands: Normal. No mass. Kidneys and ureters: There is a mass in the upper left kidney measuring 27 x 22 mm, image 51 series 6. Hounsfield units measure 73. This is not a simple cyst. Stomach and bowel: Unremarkable. No obstruction. No mucosal thickening. Stomach and bowel: Unremarkable. No obstruction. No mucosal thickening. Appendix: No evidence of appendicitis. Intraperitoneal space: Unremarkable. No free air. No significant fluid collection. Vasculature: Unremarkable. No abdominal aortic aneurysm. Lymph nodes: Unremarkable. No enlarged lymph nodes. Urinary bladder: Unremarkable as visualized. Reproductive: Unremarkable as visualized. Bones/joints: Unremarkable. No acute fracture. Soft tissues: Unremarkable. IMPRESSION: Left renal mass not clearly a simple cyst. Further characterization with ultrasound warrants consideration. Soft tissue sampling may also warrant consideration. Dictated and Authenticated by: Frank Wong MD. Ordering:JOSE Wang MD
[2021-05-13 10:03] LABS: COVID-19 PCR Negative (Negative)
== END 2021-05-13 10:40 | disposition home or self-care (01) ==
PROVIDERS: Emergency Provider Physician Assistant; PCP Family Medicine
DX: J44.1 Chronic obstructive pulmonary disease with (acute) exacerbation (principal); R91.8 Other nonspecific abnormal finding of lung field; N28.89 Other specified disorders of kidney and ureter; R07.82 Intercostal pain; F17.210 Nicotine dependence, cigarettes, uncomplicated; Z20.822 Contact with and (suspected) exposure to COVID-19; Z03.818 Encounter for observation for suspected exposure to other biological agents ruled out
CPT/HCPCS: 36415; 71275; 74177; 80053; 83690; 87635; 93005; 94640; 96361; 96374; 96375; 99285; 83735; 84484; 85025; 93010; J1885; J2930; J3490; J7620

== ENCOUNTER 2021-05-15 00:20 | Outpatient (CLI) | payer MEDICAID, SELFPAY ==
--- NOTE | 2021-05-15 | DI.MRI_ITS ---
Exam(s) MR ABDOMEN WO/W EXAM: MR ABDOMEN WO/W CLINICAL HISTORY: INDETERMINATE LT UPPER POLE RENAL LESION, F/U ABNL CT AND US,? SOLID/CYSTIC TECHNIQUE: Multiplanar multisequence MRA of the Abdomen was performed. COMPARISON: US US ABDOMEN RENAL from 04/02/2021 US US ABDOMEN RENAL from 04/02/[address] ABDOMEN WO/W from 04/09/[address] ABDOMEN WO/W from 04/09/[address] CHEST PE ABD PELVIS W from 05/13/[address] CHEST PE ABD PELVIS W from 05/13/2021 FINDINGS: Homogeneous circumscribed 2.5 centimeter lesion upper pole left kidney. No fatty component. No calc ifications. No visible septations. Post contrast enhancement is observed, consistent with a solid m ass. Two other small simple appearing cysts are noted on the left kidney. No hydronephrosis of eith er kidney. There is respiratory motion at the lung bases. The right lower lobe areas of consolidation are not i dentified on the current exam. A 6 millimeter nodule is visible at the left costophrenic angle. The liver, gallbladder, spleen, pancreas, adrenals and aorta are unremarkable. IMPRESSION: 2.5 centimeter enhancing solid mass at the upper pole of the left kidney. 6 millimeter nodule left costophrenic angle. DATA REPOSITORY:
[2021-05-15] MEDS: Gadoterate meglumine 20 ML VIAL 10 ML IVP (08:15)
== END 2021-05-15 00:40 ==
PROVIDERS: PCP Family Medicine; Visit Provider Urology
DX: N28.89 Other specified disorders of kidney and ureter (principal); N28.1 Cyst of kidney, acquired; R91.1 Solitary pulmonary nodule
CPT/HCPCS: 74183

== ENCOUNTER 2021-07-18 00:45 | Outpatient (CLI) | payer MEDICAID, SELFPAY ==
[2021-07-18] MEDS: Inhaler, Assist Device 1 EACH MC (16:26)
[2021-07-18] MEDS: Albuterol HFA 18 GM 200 PUFF INH IH (16:26)
--- NOTE | 2021-07-23 14:16 | W.PFT ---
Date of service: 08/17/21 Time of Service: 15:25 Pulmonary Function Test Result Requesting Provider Iron Indications: Dyspnea Interpretation Spirometry: There is moderate airflow obstruction. There is technically no significant bronchodilator response. Lung Volumes: Lung volumes are normal Diffusion Capacity: The diffusion is reduced Airway Pressure: Airways resistance is slightly increased. Impression Moderate airflow obstruction with a reduced diffusion. In the correct clinic setting this may represent COPD with emphysema. Clinical Correlation therefore is recommended.
== END 2021-07-18 00:46 | disposition home or self-care (01) ==
PROVIDERS: PCP Family Medicine; Visit Provider Student in an Organized Health Care Education/Training Program
DX: J43.9 Emphysema, unspecified (principal); R91.8 Other nonspecific abnormal finding of lung field; R06.09 Other forms of dyspnea; F17.210 Nicotine dependence, cigarettes, uncomplicated; Z87.01 Personal history of pneumonia (recurrent); R94.2 Abnormal results of pulmonary function studies
CPT/HCPCS: 94060; 94726; 94729

== ENCOUNTER 2021-08-02 18:14 | Outpatient (REF) | payer MEDICAID, SELFPAY | END 2021-08-02 18:15 | disposition home or self-care (01) | LOC: LBN 18:14 | PROVIDERS: PCP Family Medicine; Visit Provider Physician Assistant Medical | DX: R39.89 Other symptoms and signs involving the genitourinary system (principal) | CPT/HCPCS: 87077; 87086; 87186 ==

== ENCOUNTER 2021-08-18 16:30 | Outpatient (REF) | payer MEDICAID, SELFPAY | END 2021-08-18 16:31 | disposition home or self-care (01) | LOC: LBN 16:30 | PROVIDERS: PCP Family Medicine; Visit Provider Physician Assistant Medical | DX: R39.89 Other symptoms and signs involving the genitourinary system (principal) | CPT/HCPCS: 87086 ==

== ENCOUNTER 2021-08-29 10:15 | Outpatient (REF) | payer MEDICAID, SELFPAY | END 2021-08-29 10:16 | disposition home or self-care (01) | LOC: LBN 10:15 | PROVIDERS: PCP Family Medicine; Visit Provider Urology | DX: C64.2 Malignant neoplasm of left kidney, except renal pelvis (principal) | CPT/HCPCS: 87086 ==

== ENCOUNTER 2021-09-11 03:20 | Outpatient (CLI) | payer MEDICAID, SELFPAY ==
[2021-09-11 14:51] LABS: Source Nasal/Nares
[2021-09-11 17:12] LABS: COVID-19 PCR Negative (Negative)
== END 2021-09-11 03:21 | disposition home or self-care (01) ==
PROVIDERS: PCP Family Medicine; Visit Provider Urology
DX: Z20.822 Contact with and (suspected) exposure to COVID-19 (principal); Z01.818 Encounter for other preprocedural examination
CPT/HCPCS: 87635

== ENCOUNTER 2021-10-03 13:13 | Outpatient (REF) | payer MEDICAID, SELFPAY ==
--- NOTE | 2021-10-03 10:50 | PAPFT_PTH ---
PATIENT: Nichole Alvarenga LOC: LOCATED WITHIN [facility]#:[id number] AGE/SX: 50/F ROOM: RE10/03/[address]: Megha Khanna : 1970 BED: DIS: 10/03/2021 SPEC #: [id number] RECD: 10/03/21 17:26 STATUS: NATHALIE REFarooq #: [id number] RIVERA: 10/03/21 10:[address]: Megha Khanna DEPT: [facility] Cytology RECD BY: Joanna Parry Tissues: 1 - CX/ENDOCX FOR PAP SMEARS Procedures: PAP THIN PREP/UVM Screening HPV DNA PROBE Comments: [id number]
[2021-10-03 17:22] LABS: Anion Gap 10.1 mmol/L (3-11); BUN 17 mg/dL (7-18); CO2 24.9 mmol/L (21.0-32.0); Calcium 9.5 mg/dL (8.5-10.1); Calculated LDL 102 mg/dL (<100); Chloride 103 mmol/L (98-107); Cholesterol 188 mg/dL (<200); Estimated GFR 59.18 (mL/min/1.73m2); Glucose 97 mg/dL (74-106); HDL Cholesterol 76 mg/dL (40-60); Sodium 138 mmol/L (136-145); Triglyceride 53 mg/dL (<150)
[2021-10-04 09:57] LABS: HIV-1/2 Ag & Ab Screen Negative (Negative)
== END 2021-10-03 13:14 | disposition home or self-care (01) ==
LOC: NCHCN 13:13
PROVIDERS: PCP Family Medicine; Visit Provider Family Medicine
DX: G35 Multiple sclerosis (principal); Z13.220 Encounter for screening for lipoid disorders; Z11.4 Encounter for screening for human immunodeficiency virus [HIV]; Z12.4 Encounter for screening for malignant neoplasm of cervix; Z11.51 Encounter for screening for human papillomavirus (HPV)
CPT/HCPCS: 80048; 80061; 87389; 88142; 87624

== ENCOUNTER 2021-11-01 01:35 | Outpatient (CLI) | payer MEDICAID, SELFPAY ==
--- NOTE | 2021-11-01 12:00 | DI.MAMMO_ITS ---
Exam(s) MAMMO SCREENING EXAM: MAMMO SCREENING CLINICAL HISTORY: SCREENING, Z12.39 TECHNIQUE: Mammograms were interpreted according to the usual protocol including computer analysis w Screen Fix [employer] CAD system, tomosynthesis and C-view imaging. COMPARISON: FINDINGS: The breasts are heterogeneously dense. No dominant mass or clumped microcalcification is identified in either breast. The current examination is compared with previous examination of December 2017 and the re is question of increased prominence of areas of asymmetric density of the right breast seen in the central portion the breast on CC view and superior central portion of the breast on MLO view on the current examination. Additional mammographic views are requested to include CC and MLO spot compress ion views of the right breast. No other significant change seen. IMPRESSION: Additional mammographic views of the right breast requested as described above. Right breast ultraso und requested as well. BI-RADS Category 0 - Assessment Incomplete: Need additional imaging evaluation Breast Density - Category C - Heterogeneously dense
== END 2021-11-01 01:55 ==
PROVIDERS: PCP Family Medicine; Visit Provider Family Medicine
DX: Z12.31 Encounter for screening mammogram for malignant neoplasm of breast (principal); R92.8 Other abnormal and inconclusive findings on diagnostic imaging of breast
CPT/HCPCS: 77063; 77067

== ENCOUNTER → 2021-11-13 04:08 | Outpatient (CLI) | payer MEDICAID, SELFPAY ==
--- NOTE | 2021-11-13 13:00 | DI.MAMMO_ITS ---
Exam(s) MG MAMMO SCREEN CALL BACK UNI US BREAST RT LIMITED EXAM: MG MAMMO SCREEN CALL BACK UNI and U/S breast RT limited CLINICAL HISTORY: F/U ABNL MAMMO, ASYMMETRIC DENSITY RT BREAST CENTRAL PORTION. TECHNIQUE: Craniocaudal and mediolateral oblique Full Field Digital Mammography views of the right b reast with Computer Aided Diagnosis followed by Tomosynthesis and right breast ultrasound. COMPARISON: Comparison is made with prior examinations. FINDINGS: Mammography/Tomosynthesis: Masses/Architectural Distortion: None seen. Microcalcifictions: No suspicious pleomorphic-type are seen. Skin Thickening/Nipple Retraction: None. Limited right breast US: Echotexture: Normal appearance of the glandular tissue. Shadowing: No suspicious foci. Cyst: None. Solid lesions: None seen. Ductal dilation: None. IMPRESSION: 1. No evidence of malignancy is noted. 2. Unless there is more urgent need, follow-up screening mammography is recommended, as per [employer] guidelines. 3. The findings were discussed with the patient on the date of the examination. BI-RADS Category 1 - Negative Breast Density - Category C - Heterogeneously dense Breast density Category C or D implies that the patient has dense breast tissue. Dense breast tissue can make it harder to find cancer on a mammogram. Dense breast tissue is also associated with an incr eased risk of breast cancer. This information about the result of the mammogram report was provided to the patient to raise their awareness. Use this report when you speak with the patient about their risks for breast cancer, which includes their family history. At that time, you may recommend additional screening tests (Ultrasoun d or MRI) as these tests may add significant information. A negative radiographic report should not delay biopsy if a dominant or clinically suspicious mass is present. Up to ten percent of cancers are not identified on mammography. A negative report may reinforce clinical impression. Adenosis and dense breasts may obscure an underlying neoplasm. False positive reports average 6 to 10%. Patient will receive a letter notifying them of these results.
== END ==
PROVIDERS: PCP Family Medicine; Visit Provider Family Medicine
DX: Z12.31 Encounter for screening mammogram for malignant neoplasm of breast (principal); R92.8 Other abnormal and inconclusive findings on diagnostic imaging of breast; N64.59 Other signs and symptoms in breast
CPT/HCPCS: 76642; 77063; 77067

== ENCOUNTER → 2021-12-31 01:42 | Outpatient (CLI) | payer MEDICAID, SELFPAY ==
--- NOTE | 2021-12-31 07:15 | DI.CT_ITS ---
Exam(s) CT CHEST WO EXAM: CT CHEST WO CLINICAL HISTORY: f/u pulmonary nodules after PET/CT,r91.8 TECHNIQUE: Imaging Protocol: Axial computed tomography images with coronal and sagittal reformatted images were created and reviewed CONTRAST MATERIAL: Intravenous: Omnipaque 350 Contrast volume:structured data in ml. COMPARISON: CT CHEST ABD PELVIS WITH CONTRAST from 10/07/[address] CHEST PE ABD PELVIS W from 05/13/2021 CT,PT NM PET CT STANDARD SKULL BASE TO MID-THIGH from 07/27/2021 FINDINGS: Tracheobronchial tree: No bronchiectasis or mucous plugging. Mediastinum and Jacqueline: No dominant adenopathy or fluid collection. Pulmonary parenchyma: No consolidation. Stable 6 millimeter nodule left peripheral costophrenic angl e. Stable 5 millimeter nodule right lower lobe. Additional scattered small calcified pulmonary nodu les. No new nodules. Underlying emphysematous and fibrotic changes. Pleura: No effusion or pneumothorax. Heart: The heart is not dilated. No coronary artery calcifications are seen. Aorta: Thoracic aorta non-dilated. Upper abdomen: Unremarkable. Lymph nodes: Within normal limits. Bones: Wall for age. Soft tissues: Unremarkable. IMPRESSION: Stable bilateral pulmonary nodules. No new abnormalities. RADIATION DOSE DELIVERED: 386.9mGy.cm Total DLP DATA REPOSITORY: All CT scans at this facility are submitted to the National Radiology Data Registry (NRDR) Dose Index Registry (DIR) with the [employer] (ACR). RADIATION OPTIMIZATION: All CT scans at this facility use at least one of these dose optimization te chniques: automated exposure control; mA and/or kV adjustment per patient size (includes targeted exa ms where dose is matched to clinical indication); or iterative reconstruction.
== END ==
PROVIDERS: PCP Family Medicine; Visit Provider Student in an Organized Health Care Education/Training Program
DX: R91.8 Other nonspecific abnormal finding of lung field (principal); J43.8 Other emphysema
CPT/HCPCS: 71250

== ENCOUNTER 2022-01-02 15:56 | Outpatient (REF) | payer MEDICAID, SELFPAY ==
[2022-01-02 14:32] LABS: HCT 40.1 % (36.0-46.0); HGB 13.4 g/dL (11.2-15.7); MCH 34.7 pg (27.0-33.0); MCHC 33.4 % (32.0-36.0); MCV 104 fL (80-95); MPV 10.2 fL (8.0-11.0); Platelet Count 199 10^3/uL (130-400); RBC 3.86 10^6/uL (3.93-5.22); RDW-SD 49.7 fL; WBC 7.55 10^3/uL (4.4-10.8)
[2022-01-02 14:57] LABS: TSH (W/Ref FT4) 1.08 uIU/mL (0.36-3.74)
[2022-01-03 16:53] LABS: Vitamin B12 207 pg/mL (193-986)
== END 2022-01-02 15:57 | disposition home or self-care (01) ==
LOC: NCHCN 15:56
PROVIDERS: PCP Family Medicine; Visit Provider Family Medicine
DX: R53.83 Other fatigue (principal); R63.5 Abnormal weight gain
CPT/HCPCS: 85027; 82607; 84443

== ENCOUNTER 2022-01-04 15:22 | Outpatient (REF) | payer MEDICAID, SELFPAY ==
[2022-01-04 20:08] LABS: Folate > 20.0 ng/mL (8.6-20.0)
== END 2022-01-04 15:23 | disposition home or self-care (01) ==
LOC: NCHCN 15:22
PROVIDERS: PCP Family Medicine; Visit Provider Family Medicine
DX: R71.8 Other abnormality of red blood cells (principal)
CPT/HCPCS: 82746

== ENCOUNTER 2022-03-26 18:11 | Outpatient (REF) | payer MEDICAID, SELFPAY ==
[2022-03-26 19:14] LABS: HCT 40.3 % (36.0-46.0); HGB 13.8 g/dL (11.2-15.7); MCH 34.5 pg (27.0-33.0); MCHC 34.2 % (32.0-36.0); MCV 101 fL (80-95); MPV 10.5 fL (8.0-11.0); Platelet Count 215 10^3/uL (130-400); RDW 12.1 % (11.7-14.6); RDW-SD 45.8 fL; WBC 7.72 10^3/uL (4.4-10.8)
[2022-03-26 20:16] LABS: Vitamin B12 374 pg/mL (193-986)
== END 2022-03-26 18:12 | disposition home or self-care (01) ==
LOC: NCHCN 18:11
PROVIDERS: PCP Family Medicine; Visit Provider Family Medicine
DX: E53.8 Deficiency of other specified B group vitamins (principal)
CPT/HCPCS: 85027; 82607

== ENCOUNTER 2022-05-16 09:21 | Day surgery (SDC) | payer OTHER, MEDICAID, SELFPAY ==
[2022-05-16 09:47] VITALS: BP 149/94; PULSE 95; RESP 16; TEMP 36.7; O2SAT 96
[2022-05-16] MEDS: Lactated Ringers 1,000 ML 30 ML IV (10:11)
--- NOTE | 2022-05-16 11:08 | W.PM.DSUDISC ---
Date of service: 05/16/22 Time of Service: 12:14 Discharge Plan Disposition Patient Disposition: HOME Condition: Good Discharge Details Reason For Visit: Left thumb surgery Attending Provider: Agusto Birmingham Primary Care Provider: Megha Khanna Home Meds and New Rx's Prescriptions: New oxycodone 5 mg tablet 5 - 10 mg PO Q4H MDD 30 mg PRN (Reason: moderate to severe pain) Qty: 7 0RF Continued Stiolto Respimat 2.5-2.5 mcg/actuation mist 2 puff inhalation DAILY Qty: 4 12RF albuterol sulfate 90 mcg/actuation HFA aerosol inhaler 2 puff inhalation Q4H PRN PRN (Reason: shortness of breath or wheezing) Qty: 8.5 12RF Nexplanon 68 mg implant 1 implant SBD ONCE Qty: 1 0RF Rx Instructions: as a single dose; placed in 2017 lamotrigine [Lamictal] 100 mg tablet 50 mg PO BID Qty: 90 3RF gabapentin 300 mg capsule 300 mg PO BID Qty: 180 3RF cholecalciferol (vitamin D3) 50 mcg (2,000 unit) tablet 2,000 unit PO DAILY triamcinolone acetonide 0.1 % ointment 1 applic topical BID bupropion HCl [Wellbutrin SR] 150 mg tablet sustained-release 12 hr 150 mg PO BID cyanocobalamin (vitamin B-12) 1,000 mcg tablet 1,000 mcg PO DAILY Discharge Instructions Additional Instructions: Surgery: Left trigger thumb release Activity: Gradually increase thumb range of motion and use of your hand. Protect surgical site from undue stress for least a few days. Prescriptions: Oxycodone 5 mg take 1-2 every 4-6 hours as needed for severe pain You may use iraz-lrm-jzcczci Tylenol (acetaminophen) as needed for mild to moderate pain. These pain medications may be taken all at once or in different combinations as needed. Also, recommend Colace (docusate) as a stool softener as surgery and pain medicine cause constipation. You may try vpch-mzm-wbqqngt diphenhydramine (Benadryl) 25-50 mg nightly as a sleep aid Dressings: Leave dressing in place for 3 days. Keep clean and dry. May then remove and leave open to air or cover incision with Band-Aid. May shower after 5 days. Follow-up: 10-[address] Birmingham You may take off the leg compression stockings this evening at home. You may also leave them on a few days longer if you have a history of leg swelling or edema. Let us know right away if you develop any redness, drainage, fevers, chest pain, or trouble breathing. Do not drink alcohol or drive for at least 24 hours after anesthesia. Please call the office during business hours with any questions or concerns. DS: Diagnosis Discharge Diagnosis (1) Trigger thumb, left thumb: Status: Acute
--- NOTE | 2022-05-16 11:09 | ROE_ITS ---
Date of service: 05/16/22 Time of Service: 11:00 Operative Note Operative Note DATE OF PROCEDURE: 05/16/22 PRE-OP DIAGNOSIS: Left thumb trigger finger POST-OP DIAGNOSIS: same PROCEDURE: Left thumb trigger release, CPT #08510 SURGEON: Agusto Birmingham ANESTHESIA TYPE: Local By Surgeon Refer to Anesthesia Record ESTIMATED BLOOD LOSS: 2 TOURNIQUET TIME: 0 COMPLICATIONS: None Patient was transported to: PACU Patient's condition: stable Indications: Please see complete medical record for details. Procedure Description: In the operating room, local anesthesia was induced with 10 cc lidocaine containing epinephrine containing 1 cc of sodium bicarbonate. The patient was positioned supine on the operating room table. All bony prominences were well- padded. Preoperative antibiotics were administered. The left hand was prepped and draped in the usual sterile fashion. The correct patient, procedure, and side of the procedure were all verified prior to incision. A transverse incision was made at the appropriate volar site taking care to center the approach over the A1 alycia of the thumb. Careful retraction was maintained medial laterally and neurovascular structures were maintained out of the way while the thickened and taut alycia was exposed. It was incised with a knife and then release completed proximally distally with tenotomy scissors. Full tendon excursion out of the wound was confirmed. The patient demonstrated active full motion without any mechanical catching or limitations. The small surgical site was irrigated with bulb saline. There was excellent hemostasis. Skin was closed using 4-0 Monocryl horizontal mattress. Xeroform applied over the incision followed by gauze and hand gently wrapped in an Rajinder bandage. The patient tolerated local anesthesia without complication and was transferred to the recovery room in a stable condition.
[2022-05-16] MEDS: ceFAZolin 2 GM/50 ML BAG IVPB (11:25)
[2022-05-16] MEDS: Lidocaine 1% Pres-Free W/EPI 1/200,000 10 ML VIAL (11:44)
[2022-05-16] MEDS: Sodium Bicarbonate 50 MEQ/50 ML VIAL (11:44)
[2022-05-16 12:06] VITALS: BP 151/96; PULSE 86; RESP 18; TEMP 36.7; O2SAT 100
== END 2022-05-16 12:15 | disposition home or self-care (01) ==
PROVIDERS: PCP Family Medicine; Visit Provider Student in an Organized Health Care Education/Training Program
PROC: (CPT 26055; principal; 2022-05-16 10:45)
DX: M65.312 Trigger thumb, left thumb (principal)
CPT/HCPCS: 26055; J0690

== ENCOUNTER 2022-09-23 12:27 | Day surgery (SDC) | payer OTHER, SELFPAY ==
--- NOTE | 2022-09-22 21:14 | W.PM.DSUDISC ---
Date of service: 09/23/22 Discharge Plan Disposition Patient Disposition: Home Condition: Good Discharge Details Reason For Visit: Screening colonoscopy Attending Provider: Liam Kohli Primary Care Provider: Megha Khanna Home Meds and New Rx's Prescriptions: Continued albuterol sulfate 90 mcg/actuation HFA aerosol inhaler 2 puff inhalation Q4H PRN PRN (Reason: shortness of breath or wheezing) Qty: 8.5 12RF Nexplanon 68 mg implant 1 implant SBD ONCE Qty: 1 0RF Rx Instructions: as a single dose; placed in 2018 lamotrigine [Lamictal] 100 mg tablet 50 mg PO BID Qty: 90 3RF gabapentin 300 mg capsule 300 mg PO BID Qty: 180 3RF cholecalciferol (vitamin D3) 50 mcg (2,000 unit) tablet 2,000 unit PO DAILY triamcinolone acetonide 0.1 % ointment 1 applic topical BID bupropion HCl [Wellbutrin SR] 150 mg tablet sustained-release 12 hr 150 mg PO BID cyanocobalamin (vitamin B-12) 1,000 mcg tablet 1,000 mcg PO DAILY Stiolto Respimat 2.5-2.5 mcg/actuation mist 2 puff inhalation DAILY Qty: 4 12RF Discontinued bisacodyl [Dulcolax (bisacodyl)] 5 mg tablet,delayed release (DR/EC) 5 mg PO ONCE Qty: 4 0RF Rx Instructions: Take according to provider's instructions for colonoscopy prep. polyethylene glycol 3350 17 gram/dose powder 17 g PO ONCE Qty: 238 0RF Rx Instructions: To be taken as directed by prescriber's office for colonoscopy prep. Discharge Instructions Additional Instructions: 1. If tolerated, consume a soft, low fiber diet for 1-2 days. 2[address] Do not drive, drink alcohol, operate machinery, make critical decisions, or do activities that require coordination or balance for 24 hours. 3. Because air was put into your colon during the procedure, expelling air from your rectum (passing gas or farting) is normal. 4. You may not have a bowel movement for 1-3 days because of the colonoscopy prep. This is normal. 5. Go directly to the emergency room if you notice any of the following: Develop chills (warm to touch), or if you have a thermometer and your temperature is above 101 Difficulty breathing or difficultly swallowing Persistent vomiting Severe abdominal pain, other than gas cramps Severe chest pain Black, tarry stools Any bleeding ? exceeding one tablespoon 6. Call your physician if the site where your intravenous was started becomes red, swollen, painful, and warm to touch. 7. Your physician has reviewed your pre-procedure medications. Please continue to take those medications as previously ordered. You will be given specific information/education regarding any changes to your medications before leaving. Activity:: Activity as Tolerated Diet:: As Tolerated DS: Diagnosis Discharge Diagnosis (1) Screening for colon cancer: Status: Acute
--- NOTE | 2022-09-22 21:16 | W.COLOREPORT ---
Date of service: 09/23/22 Colonoscopy Report Date of procedure: 09/23/22 Pre-op diagnosis general: Screening colonoscopy Procedure: Colonoscopy Surgeon: Liam Kohli Anesthesia Type: General:No Airway Complications: None Disposition: same day Indications: Nichole is a 51 year old woman who needs a screening colonoscopy Prep: Miralax/Dulcolax
[2022-09-23 12:51] VITALS: BP 151/98; PULSE 97; RESP 18; TEMP 36.7; O2SAT 96
--- NOTE | 2022-09-23 14:04 | PDOC.ANES ---
Date of service: 09/23/22 Time of Service: 13:25 Anesthesia Note Report Anesthesia Note: Patient evaluated at beside at the request of DSU RN for reports of yellow productive cough. Patient was met and interviewed. Patient attested to a cold for 10 days and per auscultation, rhonchi throughout. Patient informed that unfortunately the screening colonoscopy would be cancelled today and she should follow up with her PCP. Patient also educated that she needs to have resolution of symptoms for 2/weeks prior to rescheduling of colonoscopy. Patient verbalizes understanding.
== END 2022-09-23 12:28 | disposition home or self-care (01) ==
LOC: SUR 12:28
PROVIDERS: PCP Family Medicine; Visit Provider Surgery
DX: Z12.11 Encounter for screening for malignant neoplasm of colon (principal); Z53.8 Procedure and treatment not carried out for other reasons; R05.9 Cough, unspecified

== ENCOUNTER 2022-09-27 14:14 | Outpatient (REF) | payer OTHER, SELFPAY ==
[2022-09-27 18:32] LABS: HCT 43.9 % (36.0-46.0); HGB 14.8 g/dL (11.2-15.7); MCH 34.3 pg (27.0-33.0); MCHC 33.7 % (32.0-36.0); MCV 102 fL (80-95); MPV 10.2 fL (8.0-11.0); Platelet Count 245 10^3/uL (130-400); RBC 4.31 10^6/uL (3.93-5.22); RDW 12.3 % (11.7-14.6); RDW-SD 46.5 fL; WBC 8.77 10^3/uL (4.4-10.8)
[2022-09-27 19:11] LABS: BUN 19 mg/dL (7-18); CREATININE 1.2 mg/dL (0.55-1.02); Calcium 9.9 mg/dL (8.5-10.1); Chloride 104 mmol/L (98-107); Estimated GFR 55.49 (mL/min/1.73m2); Glucose 104 mg/dL (74-106); Potassium 4.7 mmol/L (3.5-5.1); Sodium 141 mmol/L (136-145); Vitamin B12 375 pg/mL (193-986)
== END 2022-09-27 14:15 | disposition home or self-care (01) ==
LOC: NCHCN 14:14
PROVIDERS: PCP Family Medicine; Visit Provider Family Medicine
DX: R03.0 Elevated blood-pressure reading, without diagnosis of hypertension (principal); E53.8 Deficiency of other specified B group vitamins; R91.8 Other nonspecific abnormal finding of lung field
CPT/HCPCS: 80048; 85027; 82607

== ENCOUNTER 2022-10-07 17:21 | Outpatient (REF) | payer OTHER, SELFPAY ==
--- NOTE | 2022-10-07 14:45 | PAPFT_PTH ---
PATIENT: Nichole Alvarenga LOC: [facility] U#:[id number] AGE/SX: 51/F ROOM: RE10/07/[address]: Megha Khanna : 1970 BED: DIS: 10/07/2022 SPEC #: [id number] RECD: 10/07/22 18:45 STATUS: NATHALIE REQ #: [id number] RIVERA: 10/07/22 14:[address]: Megha Khanna DEPT: [facility] Cytology RECD BY: Joanna Parry Tissues: 1 - CX/ENDOCX FOR PAP SMEARS Procedures: PAP THIN PREP/UVM Screening HPV DNA PROBE Comments: [id number]
== END 2022-10-07 17:22 | disposition home or self-care (01) ==
LOC: LBN 17:21
PROVIDERS: PCP Family Medicine; Visit Provider Family Medicine
DX: Z12.4 Encounter for screening for malignant neoplasm of cervix (principal); Z11.51 Encounter for screening for human papillomavirus (HPV)
CPT/HCPCS: 88142; 87624

== ENCOUNTER 2022-10-15 09:11 | Day surgery (SDC) | payer OTHER, SELFPAY ==
[2022-10-15 09:15] VITALS: BP 138/85; PULSE 96; RESP 18; TEMP 36.1; O2SAT 98
--- NOTE | 2022-10-15 09:39 | W.ANESPRE ---
General Info Date of Service Date Performed: 10/15/22 Height: 5 ft 3 in Weight: 62.3 kg Body Mass Index (BMI): 24.3 Surgical Procedure: Operation Date: 10/15/22 10:50 Proposed Procedure Side Surgeon tiana Petty MD Meds Allergies and Home Medications Allergies Allergy/AdvReac Type Severity Reaction Status Date / Time latex Allergy Severe Hives Unverified 10/15/22 09:23 Home Medication Medication Instructions Recorded etonogestrel 68 mg subdermal 1 implant subdermal ONCE #1 ea 08/10/18 implant (Nexplanon) gabapentin 300 mg capsule 300 mg PO BID #180 caps 08/10/18 lamotrigine 100 mg tablet 50 mg PO BID #90 tabs 08/10/18 (Lamictal) cholecalciferol (vitamin D3) 50 2,000 unit PO DAILY 09/07/20 mcg (2,000 unit) tablet albuterol sulfate 90 mcg/actuation 2 puff inhalation Q4H PRN PRN 07/23/21 aerosol inhaler shortness of breath or wheezing #8.5 grams bupropion HCl 150 mg tablet,12 hr 150 mg PO BID 11/30/21 sustained-release (Wellbutrin SR) triamcinolone acetonide 0.1 % 1 applic topical BID 11/30/21 topical ointment cyanocobalamin (vitamin B-12) 1,000 mcg PO DAILY 04/09/22 1,000 mcg tablet tiotropium 2.5 mcg-olodaterol 2.5 2 puff inhalation DAILY #4 grams 08/20/22 mcg/actuation mist for inhalation (Stiolto Respimat) varenicline 1 mg tablet 1 mg PO BID 10/14/22 Current Visit Medications: Current Medications Generic Name Dose Route Start Last Admin Trade Name Freq PRN Reason Stop Dose Admin Ringer's Solution 1,000 mls @ 80 mls/hr 10/15/22 06:00 IV 11/13/22 23:59 INFUSION ZAIN IV Miscellaneous Supplies 1 each 10/15/22 06:00 Iv Access IV 11/13/22 23:59 DIRECTED ZAIN Sodium Chloride 0 ml 10/15/22 06:00 Normal Saline Flush 10 Ml Syr IV 11/13/22 23:59 PRN PRN Sodium Chloride 0 ml 10/15/22 06:00 Normal Saline 10 Ml Vial IJ 11/13/22 23:59 DIRECTED PRN Sterile Water 0 ml 10/15/22 06:00 Water,Injection,Sterile 10 Ml Vial IJ 11/13/22 23:59 DIRECTED PRN PFSH Active Problems Active Problems: Problem Status Onset Code Dyspnea R06.00 Multiple pulmonary nodules R91.8 Emphysema lung J43.9 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 Tobacco use Z72.0 Screening for colon cancer Z12.11 Nicotine dependence, cigarettes, uncomplicated F17.210 COPD (chronic obstructive pulmonary disease) J44.9 Trigger thumb, left thumb M65.312 Lateral epicondylitis, right elbow M77.11 Medical History Medical History Acute exacerbation of chronic obstructive pulmonary disease Cervical dysplasia Cervical high risk HPV (human papillomavirus) test positive COPD with asthma Cough Elevated blood pressure reading History of positive PPD Hot flashes Human papilloma virus (HPV) DNA test negative Lateral epicondylitis of both elbows (11/17/17) Multiple sclerosis (10/18/15) Paronychia, finger Pneumonia Positive PPD Pseudoseizures (10/18/15) 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 Tobacco Smoking/Tobacco Use Status: Current every day Tobacco Type: cigarettes Smoking cigarettes per day: 20 Alcohol Alcohol Intake: current Alcohol intake frequency: 0-2 drinks per day Alcohol type: beer and hard liquor Substance Use Substance use: Never Substance use type: does not use Vital Signs and Lab Results Vital Signs Most Recent Vital Signs in EMR: Most Recent Vital Signs Temp Pulse Resp BP Pulse Ox 36.1 C L 96 H 18 138/85 98 10/15/22 09:15 10/15/22 09:15 10/15/22 09:15 10/15/22 09:15 10/15/22 09:15 Lab Results Blood Type / Crossmatch: No Data to Display Complete Blood Count: White Blood Count 8.77 10^3/uL (4.4-10.8) 09/27/22 13:56 Red Blood Count 4.31 10^6/uL (3.93-5.22) 09/27/22 13:56 Hemoglobin 14.8 g/dL (11.2-15.7) 09/27/22 13:56 Hematocrit 43.9 % (36.0-46.0) 09/27/22 13:56 Platelet Count 245 10^3/uL (130-400) 09/27/22 13:56 Complete Metabolic Panel: Sodium 141 mmol/L (136-145) 09/27/22 13:56 Potassium 4.7 mmol/L (3.5-5.1) 09/27/22 13:56 Chloride 104 mmol/L (98-107) 09/27/22 13:56 Carbon Dioxide 30.0 mmol/L (21.0-32.0) 09/27/22 13:56 BUN 19 mg/dL (7-18) H 09/27/22 13:56 Creatinine 1.2 mg/dL (0.55-1.02) H 09/27/22 13:56 Est GFR (CKD-EPI 2020) 55.49 (mL/min/1.73m2) 09/27/22 13:56 Calcium 9.9 mg/dL (8.5-10.1) 09/27/22 13:56 Glucose 104 mg/dL (74-106) 09/27/22 13:56 Liver Function Panel: No Data to Display Coagulation Panel: No Data to Display Cardiac Panel: No Data to Display Arterial Blood Gas: No Data to Display Venous Blood Gas: No Data to Display Pancreas Panel: No Data to Display Thyroid Panel: No Data to Display Infectious Disease: No Data to Display Blood Cultures: No Data to Display Toxicology Panel: No Data to Display Panel: No Data to Display Imaging and Studies Imaging and Studies Study information below may be from another EMR and interpreted by another provider. Please see original notes in EMR for more complete details. EKG Summary: Conclusion Sinus rhythm...normal P axis, V-rate 60- 99 Atrial premature complex...SV complex w/ short R-R interval. Sinus. PACs. No STEMI. I have reviewed and interpreted ECG and agree with software generated interpretation Pulmonary Function Summary: Spirometry: There is moderate airflow obstruction. There is technically no significant bronchodilator response. Lung Volumes: Lung volumes are normal Diffusion Capacity: The diffusion is reduced Airway Pressure: Airways resistance is slightly increased. Impression Moderate airflow obstruction with a reduced diffusion. In the correct clinic setting this may represent COPD with emphysema. Clinical Correlation therefore is Spirometry: There is moderate airflow obstruction. There is technically no significant bronchodilator response. Lung Volumes: Lung volumes are normal Diffusion Capacity: The diffusion is reduced Airway Pressure: Airways resistance is slightly increased. Impression Moderate airflow obstruction with a reduced diffusion. In the correct clinic setting this may represent COPD with emphysema. Clinical Correlation therefore is recommended. Anesthesia Assessment and Plan Anesthesia History Personal History: No History of Anesthesia Complications Family History: No Family History of Anesthesia Complications Exercise Tolerance Exercise Tolerance: Metabolic Equivalents>4 Pertinent Negatives Pertinent Negatives: No Symptoms of GERD Cardiac & Pulmonary Exam Cardiac Exam: Normal S1/S2 Heart Sounds Pulmonary Exam: Clear Bilateral Breath Sounds Implantable Cardiac Device Does patient have a Pacemaker or an ICD?: No Airway Exam Known Difficult Airway: No Mallampati Class: 2 Mouth Opening: Normal (> 3cm) Thyromental Distance: Greater than 3 cm Neck Range of Motion: Full ROM Neck Circumference: Normal Teeth Condition: Normal Dentition and Removable Dentures/Plates Upper ASA Classification ASA Score: ASA 2 Emergency Case?: No NPO Status NPO Status: NPO Clears >2 hours, Solids >8 hours Status Status: Not Per Patient Anesthesia Plan Resuscitation Status: Full Code Anesthesia Technique: General Anesthesia Airway Planned: Natural Airway Monitors Used: Standard Monitors
[2022-10-15] MEDS: Lactated Ringers 1,000 ML 80 ML IV (09:48)
[2022-10-15 09:49] VITALS: BMI 24.3
--- NOTE | 2022-10-15 10:25 | W.SURGCON ---
Date of service: 10/15/22 Time of Service: 10:31 Assessment and Plan Assessment and plan (1) Screening for colon cancer: Status: Acute Assessment and plan: 51-year-old woman due for screening colonoscopy. Her abdominal discomfort and bloating on and off sounds related somehow to her relatively recent surgical procedure. Overall plan: Screening colonoscopy History of Present Illness Narrative: 51-year-old woman has not had screening colonoscopy before. She does not know her family history because she is adopted. Her surgical history includes a partial nephrectomy done minimally invasive a year ago. Since then she says she has felt bloated and on and off abdominal discomfort but it has been since that surgery specifically and prior to that she has never had issues. PFSH All Active Problems Dyspnea (Acute) Multiple pulmonary nodules (Acute) Emphysema lung (Acute) Papillary renal cell carcinoma (Acute) left kidney. Tobacco use (Acute) Screening for colon cancer (Acute) Nicotine dependence, cigarettes, uncomplicated (Acute) COPD (chronic obstructive pulmonary disease) (Chronic) Trigger thumb, left thumb (Acute) Lateral epicondylitis, right elbow (Acute) Medical History Acute exacerbation of chronic obstructive pulmonary disease Cervical dysplasia Cervical high risk HPV (human papillomavirus) test positive COPD with asthma Cough Elevated blood pressure reading History of positive PPD Hot flashes Human papilloma virus (HPV) DNA test negative Lateral epicondylitis of both elbows (11/17/17) Multiple sclerosis (10/18/15) Paronychia, finger Pneumonia Positive PPD Pseudoseizures (10/18/15) 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 Social History Smoking/Tobacco Use Status: Current every day Tobacco Type: cigarettes Smoking risk assessment performed?: Yes Alcohol Intake: current Alcohol Intake frequency: 0-2 drinks per day Alcohol type: beer and hard liquor Drug use: Never Substance use type: does not use Current gender identity: female Do you feel safe at home: Yes Do you feel safe in your relationship?: Yes Exam Narrative Exam Narrative: General: Nontoxic, comfortable and interactive Neuro: Alert and oriented x3 Psych: Appropriate mood and affect, good insight and understanding into her condition Chest: Nonlabored breathing and no wheezing Heart: Regular Results Last Vital Signs Temp 97.0 F L 10/15/22 09:15 Pulse 96 H 10/15/22 09:15 Resp 18 10/15/22 09:15 BP 138/85 10/15/22 09:15 Pulse Ox 98 10/15/22 09:15
--- NOTE | 2022-10-15 10:59 | W.PM.OP ---
Date of service: 10/15/22 Time of Service: 10:59 Operative Note Operative Note Refer to Anesthesia Record Procedure Description: Procedures performed: 1. Colonoscopy Preoperative diagnosis: Screening colonoscopy Postoperative diagnosis: Normal colon Surgeon: Bibi Petty Anesthesia: Ervin Indication for procedure: Patient is a 51-year-old woman who does not know her family history and is due for screening colonoscopy. She does report that since her partial?nephrectomy, she has had cramping abdominal discomfort and some bloating. Findings: Terminal ileum was normal. The colon itself was normal. No polyps. No diverticuli. An unusual twist to the colon that I appreciate in the left colon. It is proximal to the sigmoid colon and it may be the splenic flexure. While this does not appear to be obstructing, this area does not distend and has a clear and obvious partial twist to it. This is right in the region of the partial nephrectomy and I cannot help but wonder if some post?op scar tissue has created some sort of unusual partial?twist that causes partial?obstruction. Surveillance/follow-up recommendations: I really think that the twist that was notable to me is the underlying cause of her symptoms and is probably a post?surgical/scar tissue situation. She should follow-up with me in the office to discuss this and possible diagnostic laparoscopy and release of that region of the colon. She should repeat another colonoscopy in 10 years for another colorectal cancer screening surveillance. Complications: None Blood loss: Minimal Specimens:?? None Quality of Prep:?? Good Procedure in detail: Written consent was obtained from the patient who was in agreement with the risks, benefits and indications of the procedure.? We went to the endoscopy suite and laid the patient in left lateral decubitus position.? Anesthesia was administered which was tolerated well.? A timeout was performed and when we are all in agreement we began the procedure. Digital rectal exam and visual examination was performed and within normal limits.? A well?lubricated colonoscope was advanced without difficulty all the way to the cecum identified by the ileocecal valve, and triangular folds and appendiceal orifice.? The terminal ileum was intubated and appeared normal. It was then slowly withdrawn.?? Retroflexion was performed in the rectum.? The findings/interventions are noted above. The scope was then removed and the patient tolerated the procedure well and was then taken back to the PACU in hemodynamically stable condition.
[2022-10-15 11:05] VITALS: BP 114/83; PULSE 79; RESP 16; TEMP 37.4; O2SAT 97
--- NOTE | 2022-10-15 11:14 | W.ANESPOSTOP ---
Postoperative Evaluation Date, Time and Location Date Performed: 10/15/22 Time Performed: 11:14 Patient Location: Day Surgery Unit Vital Signs Most Recent Imported Vital Signs: Most Recent Vital Signs Temp Pulse Resp BP Pulse Ox 37.4 C 79 16 114/83 97 10/15/22 11:05 10/15/22 11:05 10/15/22 11:05 10/15/22 11:05 10/15/22 11:05 Pain Score Most Recent Pain Score: Most Recent Pain Score Pain Level 0 10/15/22 11:05 Assessment Mental Status: Awake (Alert & Oriented to Patient Baseline) Airway and Respiratory Function: Patent airway with normal (patient baseline) respiratory exam Cardiovascular Function: Hemodynamically Stable Hydration Status: Adequately Hydrated Nausea & Vomiting: No Nausea or Vomiting Pain: Pt. Denies Any Pain Peripheral Nerve Block: Patient did not receive a nerve block
[2022-10-15 11:38] VITALS: BP 131/79; PULSE 74; RESP 16; TEMP 36.7; O2SAT 100
== END 2022-10-15 11:45 | disposition home or self-care (01) ==
PROVIDERS: PCP Family Medicine; Visit Provider Student in an Organized Health Care Education/Training Program
PROC: 0DJD8ZZ Inspection of Lower Intestinal Tract, Via Natural or Artificial Opening Endoscopic (ICD-10-PCS; CPT 45378; principal; 2022-10-15 10:45)
DX: Z12.11 Encounter for screening for malignant neoplasm of colon (principal)
CPT/HCPCS: 45378

== ENCOUNTER 2022-11-04 00:45 | Outpatient (CLI) | payer OTHER, SELFPAY ==
--- NOTE | 2022-11-04 12:30 | DI.MAMMO_ITS ---
Exam(s) MAMMO SCREENING EXAM: MAMMO SCREENING CLINICAL HISTORY: SCREENING FOR BREAST CANCER Z12.39. TECHNIQUE: Bilateral full field digital CC and MLO mammographic images were obtained with 3D tomosyn thesis and utilizing computer aided detection (CAD). COMPARISON: Prior mammograms were reviewed. FINDINGS: The fibroglandular tissue pattern is again noted be moderately dense, this somewhat decreasing the se nsitivity of the mammogram for finding hidden underlying lesions. There are no new significant findings in the right breast. In the left breast on the 3D MLO imaging there is an asymmetric density-possible nodule located 3 cm in from the nipple measuring 6 by 4 mm. Not evident on prior studies. There are no malignant-appear ing microcalcification groups is region or elsewhere in either breast. There is no significant architectural distortion nor skin thickening-retraction. IMPRESSION: No radiographic evidence of malignancy in the right breast. Asymmetric density-possible nodule left breast as described above. Spot compression MLO view and ult rasound recommended. BI-RADS Category 0 - Assessment Incomplete: Need additional imaging evaluation Breast Density - Category C - Heterogeneously dense Breast density Category C or D implies that the patient has dense breast tissue. Dense breast tissue can make it harder to find cancer on a mammogram. Dense breast tissue is also associated with an incr eased risk of breast cancer. This information about the result of the mammogram report was provided to the patient to raise their awareness. Use this report when you speak with the patient about their risks for breast cancer, which includes their family history. At that time, you may recommend additional screening tests (Ultrasoun d or MRI) as these tests may add significant information. A negative radiographic report should not delay biopsy if a dominant or clinically suspicious mass is present. Up to ten percent of cancers are not identified on mammography. A negative report may reinforce clinical impression. Adenosis and dense breasts may obscure an underlying neoplasm. False positive reports average 6 to 10%. Patient will receive a letter notifying them of these results.
== END 2022-11-04 01:05 ==
LOC: DI 00:45
PROVIDERS: PCP Family Medicine; Visit Provider Family Medicine
DX: Z12.31 Encounter for screening mammogram for malignant neoplasm of breast (principal); R92.2 Inconclusive mammogram
CPT/HCPCS: 77063; 77067

== ENCOUNTER 2022-11-13 01:28 | Outpatient (CLI) | payer OTHER, SELFPAY ==
--- NOTE | 2022-11-13 | DI.US_ITS ---
Exam(s) MG MAMMO SCREEN CALL BACK UNI US BREAST LT LIMITED EXAM: MG MAMMO SCREEN CALL BACK UNI CLINICAL HISTORY: F/U ABNL MAMMO, ASYMMETRIC DENSITY POSSIBLE NODULE LT BREAST. TECHNIQUE: Craniocaudal and mediolateral oblique spot compression digital Mammography views of the l eft breast followed by Tomosynthesis and left breast ultrasound. COMPARISON: MG Screening Bilat Mammo from 01/09/2018 MG MG MAMMO SCREENING from 11/01/2021 US US BREAST RT LIMITED from 11/13/2021 MG MG MAMMO SCREENING from 11/04/2022 US US BREAST LT LIMITED from 11/13/2022 FINDINGS: Mammography/Tomosynthesis: Masses/Architectural Distortion: 5 millimeter nodule visible lower inner quadrant anterior tissue. Microcalcifictions: No suspicious pleomorphic-type are seen. Skin Thickening/Nipple Retraction: None. Left breast US: Echotexture: Normal appearance of the glandular tissue. Shadowing: No suspicious foci. Cyst: 4 millimeter cyst with debris lower inner quadrant 7 o'clock position 3 cm from the nipple. Solid lesions: None seen. Ductal dilation: None. IMPRESSION: 1. No evidence of malignancy is noted. 2. Unless there is more urgent need, follow-up screening mammography is recommended, as per [place] guidelines. 3. The findings were discussed with the patient on the date of the examination. BI-RADS Category 2 - Benign Findings Breast Density - Category C - Heterogeneously dense A mammogram that demonstrates density of C or D indicates the patient's breast tissue is dense. Dense breast tissue is very common and is not abnormal, but dense breast tissue can make it harder to find cancer on a mammogram. Also, dense breast tissue may increase their breast cancer risk. This informa tion about the result of the mammogram report was provided to the patient to raise their awareness. U se this report when you speak with the patient about their risks for breast cancer, which includes th eir family history. At that time, you may recommend for more screening tests (Ultrasound or MRI) as t hey might be useful based on their risk. A negative radiographic report should not delay biopsy if a dominant or clinically suspicious mass is present. Up to ten percent of cancers are not identified on mammography. A negative report may reinforce clinical impression. Adenosis and dense breasts may obscure an underlying neoplasm. False positive reports average 6 to 10%. Patient will receive a letter notifying them of these results.
== END 2022-11-13 01:48 ==
LOC: DI 01:28
PROVIDERS: PCP Family Medicine; Visit Provider Family Medicine
DX: R92.8 Other abnormal and inconclusive findings on diagnostic imaging of breast (principal)
CPT/HCPCS: 76642; 77063; 77067

== ENCOUNTER 2022-11-23 09:40 | Outpatient (REF) | payer OTHER, SELFPAY ==
[2022-11-23 17:01] LABS: Bacteria Few HPF (Negative); C & S Indicated? C&S Done As Ordered; Crystals Negative HPF (Negative); Epithelial Cells Rare HPF (Negative); Mucus Negative (Negative); WBC >50 HPF (0-5)
== END 2022-11-23 09:41 | disposition home or self-care (01) ==
LOC: LBN 09:40
PROVIDERS: PCP Family Medicine; Visit Provider Nurse Practitioner Family
DX: N39.0 Urinary tract infection, site not specified (principal)
CPT/HCPCS: 81015; 87086

== ENCOUNTER 2022-12-11 07:31 | Day surgery (SDC) | payer OTHER, SELFPAY ==
--- NOTE | 2022-12-10 19:16 | W.ANESPRE ---
General Info Date of Service Date Performed: 12/11/22 Height: 5 ft 3 in Weight: 63.503 kg Body Mass Index (BMI): 24.7 Surgical Procedure: Operation Date: 12/11/22 09:25 Proposed Procedure Side Surgeon p Diagnostic Laparoscopy Marco Petty MD Meds Allergies and Home Medications Allergies Allergy/AdvReac Type Severity Reaction Status Date / Time latex Allergy Severe Hives Verified 12/11/22 07:52 Home Medication Medication Instructions Recorded etonogestrel 68 mg subdermal 1 implant subdermal ONCE #1 ea 08/10/18 implant (Nexplanon) gabapentin 300 mg capsule 300 mg PO BID #180 caps 08/10/18 lamotrigine 100 mg tablet 50 mg PO BID #90 tabs 08/10/18 (Lamictal) cholecalciferol (vitamin D3) 50 2,000 unit PO DAILY 09/07/20 mcg (2,000 unit) tablet triamcinolone acetonide 0.1 % 1 applic topical BID 11/30/21 topical ointment cyanocobalamin (vitamin B-12) 1,000 mcg PO DAILY 04/09/22 1,000 mcg tablet tiotropium 2.5 mcg-olodaterol 2.5 2 puff inhalation DAILY #4 grams 08/20/22 mcg/actuation mist for inhalation (Stiolto Respimat) varenicline 1 mg tablet 1 mg PO BID 10/14/22 albuterol sulfate 90 mcg/actuation 2 puff inhalation Q4H PRN PRN 11/07/22 aerosol inhaler shortness of breath or wheezing #8.5 grams Current Visit Medications: Current Medications Generic Name Dose Route Start Last Admin Trade Name Dawoodq PRN Reason Stop Dose Admin Heparin Sodium (Porcine) 5,000 units 12/11/22 06:00 Heparin 5,000 Units/Ml Vial SC 12/11/22 18:00 PREOP ZAIN Ringer's Solution 1,000 mls @ 80 mls/hr 12/11/22 06:00 IV 01/09/23 23:59 INFUSION [facility] IV Miscellaneous Supplies 1 each 12/11/22 06:00 Iv Access IV 01/09/23 23:59 DIRECTED ZAIN Sodium Chloride 0 ml 12/11/22 06:00 Normal Saline Flush 10 Ml Syr IV 01/09/23 23:59 PRN PRN Sodium Chloride 0 ml 12/11/22 06:00 Normal Saline 10 Ml Vial IJ 01/09/23 23:59 DIRECTED PRN Sterile Water 0 ml 12/11/22 06:00 Water,Injection,Sterile 10 Ml Vial IJ 01/09/23 23:59 DIRECTED PRN PFSH Active Problems Active Problems: Problem Status Onset Code Abdominal pain R10.9 Dyspnea R06.00 Multiple pulmonary nodules R91.8 Emphysema lung J43.9 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 Tobacco use Z72.0 Screening for colon cancer Z12.11 Nicotine dependence, cigarettes, uncomplicated F17.210 COPD (chronic obstructive pulmonary disease) J44.9 Trigger thumb, left thumb M65.312 Lateral epicondylitis, right elbow M77.11 Medical History Medical History Acute exacerbation of chronic obstructive pulmonary disease Cervical dysplasia Cervical high risk HPV (human papillomavirus) test positive COPD with asthma Cough Elevated blood pressure reading History of positive PPD Hot flashes Human papilloma virus (HPV) DNA test negative Lateral epicondylitis of both elbows (11/17/17) Multiple sclerosis (10/18/15) Paronychia, finger Pneumonia Positive PPD Pseudoseizures (10/18/15) 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 Tobacco Smoking/Tobacco Use Status: Current every day Tobacco Type: cigarettes Smoking cigarettes per day: 20 Alcohol Alcohol Intake: current Alcohol intake frequency: 0-2 drinks per day Alcohol type: beer and hard liquor Substance Use Substance use: Never Substance use type: does not use Vital Signs and Lab Results Lab Results Blood Type / Crossmatch: No Data to Display Complete Blood Count: No Data to Display Complete Metabolic Panel: No Data to Display Liver Function Panel: No Data to Display Coagulation Panel: No Data to Display Cardiac Panel: No Data to Display Arterial Blood Gas: No Data to Display Venous Blood Gas: No Data to Display Pancreas Panel: No Data to Display Thyroid Panel: No Data to Display Infectious Disease: No Data to Display Blood Cultures: No Data to Display Toxicology Panel: No Data to Display Panel: No Data to Display Imaging and Studies Imaging and Studies Study information below may be from another EMR and interpreted by another provider. Please see original notes in EMR for more complete details. EKG Summary: 05/10: Sinus rhythm...normal P axis, V-rate 60- 99 Atrial premature complex...SV complex w/ short R-R interval. Pulmonary Function Summary: 2021: moderate obstruction, reduced diffusion, potentially COPD with emphysema. Anesthesia Assessment and Plan Anesthesia History Personal History: No History of Anesthesia Complications Family History: No Family History of Anesthesia Complications Exercise Tolerance Exercise Tolerance: Metabolic Equivalents>4 Cardiac & Pulmonary Exam Cardiac Exam: Normal S1/S2 Heart Sounds Pulmonary Exam: Clear Bilateral Breath Sounds Implantable Cardiac Device Does patient have a Pacemaker or an ICD?: No Airway Exam Known Difficult Airway: No Mallampati Class: 2 Mouth Opening: Normal (> 3cm) Thyromental Distance: Greater than 3 cm Neck Range of Motion: Full ROM Neck Circumference: Normal Teeth Condition: Normal Dentition and Removable Dentures/Plates Upper ASA Classification ASA Score: ASA 3 Emergency Case?: No NPO Status NPO Status: NPO Clears >2 hours, Solids >8 hours and NPO Small Non-Fatty Meal >6 hours Status Status: Not Relevant due to Medical History Anesthesia Plan Resuscitation Status: Full Code Anesthesia Technique: General Anesthesia Airway Planned: Endotracheal Tube Monitors Used: Standard Monitors Preoperative Comments:: 52 yo female with abd pain for dx laparoscopy. Sig PMHx: COPD/emphysema/lung nodule, pseudo seizures, papillary renal cell carcinoma, MS, smoker, occ EtOH, daily smoker. Previous Anes: - colo, prop, natural airway, no issues. Plan: GUEVARA
[2022-12-11] VITALS (8 sets, daily range): BP systolic 117–147; BP diastolic 57–97; PULSE 65–95; RESP 15–17; TEMP 36.5–36.6; O2SAT 95–97; BMI 24.7
[2022-12-11] MEDS: Lactated Ringers 1,000 ML 80 ML IV (08:06)
--- NOTE | 2022-12-11 08:36 | W.SURGCON ---
Date of service: 12/11/22 Time of Service: 08:36 Assessment and Plan Assessment and plan (1) Abdominal pain: Status: Acute Assessment and plan: 52-year-old woman who has chronic left upper quadrant abdominal discomfort. She had a kidney tumor there and had kidney surgery there. She had a notable twist during her colonoscopy in that location. There is speculation that we may be able to mobilize the splenic flexure and get rid of this twist which is presumably causing the discomfort there. We talked about the risks of surgery and in particular we talked about the possibility of symptoms persisting despite our surgery today. We also talked about the possibility of not finding anything obvious during surgery and no interventions being performed. She accepts these risks and wishes to proceed with the hope that we can find what is causing the discomfort. Plan: Diagnostic laparoscopy History of Present Illness Narrative: Patient here for diagnostic laparoscopy. No new symptoms or complaints. 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 Tobacco use (Acute) Screening for colon cancer (Acute) Nicotine dependence, cigarettes, uncomplicated (Acute) COPD (chronic obstructive pulmonary disease) (Chronic) Trigger thumb, left thumb (Acute) Lateral epicondylitis, right elbow (Acute) Medical History Acute exacerbation of chronic obstructive pulmonary disease Cervical dysplasia Cervical high risk HPV (human papillomavirus) test positive COPD with asthma Cough Elevated blood pressure reading History of positive PPD Hot flashes Human papilloma virus (HPV) DNA test negative Lateral epicondylitis of both elbows (11/17/17) Multiple sclerosis (10/18/15) Paronychia, finger Pneumonia Positive PPD Pseudoseizures (10/18/15) 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 Social History Smoking/Tobacco Use Status: Current every day Tobacco Type: cigarettes Smoking risk assessment performed?: Yes Alcohol Intake: current Alcohol Intake frequency: 0-2 drinks per day Alcohol type: beer and hard liquor Drug use: Never Substance use type: does not use Current gender identity: female Do you feel safe at home: Yes Do you feel safe in your relationship?: Yes Exam Narrative Exam Narrative: General: Nontoxic, comfortable and interactive Neuro: Alert and oriented x3 Psych: Appropriate mood and affect, good insight and understanding into her condition Abdomen: Soft, nondistended and nontender Chest: Nonlabored breathing Heart: Regular Results Last Vital Signs Temp 97.9 F 12/11/22 07:35 Pulse 95 H 12/11/22 07:35 Resp 17 12/11/22 07:35 BP 141/90 H 12/11/22 07:35 Pulse Ox 95 12/11/22 07:35
[2022-12-11] MEDS: Heparin 5,000 UNITS/ML VIAL 5000 UNITS SC (09:35)
[2022-12-11] MEDS: Bupivacaine 0.25% Pres-Free 30 ML VIAL (10:00)
--- NOTE | 2022-12-11 10:33 | W.PM.OP ---
Date of service: 12/11/22 Time of Service: 10:33 Operative Note Operative Note Refer to Anesthesia Record Procedure Description: Procedures performed: 1. Diagnostic laparoscopy 2. Laparoscopic lysis of adhesions 3. Laparoscopic mobilization of splenic flexure ?Preoperative diagnosis: Left upper quadrant abdominal pain ?Postop diagnosis: Intra-abdominal adhesions, partial large bowel obstruction ?Surgeon: Bibi? Priyank [employer] Supervisor: Reinaldo ?Anesthesia: General ?Anesthesia provider: Cameron ?Indication for procedure: 52-year-old woman who has long?standing, episodic left upper quadrant abdominal pain associated with bloating with relief related to bowel habits. She has a history of a left kidney tumor as well as a left kidney surgery. During her colonoscopy, a twist/kink was subjectively found at the splenic flexure and the transverse colon was felt to be mildly dilated proximal to this twist. Speculation that tethering from scar tissue from either her tumor, her surgery or both could be playing a physiologic role in her condition. ?Findings: Directly at the level of the splenic flexure, the transverse colon going into the descending colon has a sharp turn/twist. It is more than 90 degrees and appears unusually sharp. Separately, dense scar tissue was encountered tethering this corner against the retroperitoneum. The tethering from the scar tissue was such that the splenocolic attachments were not playing any role and were floppy. Division of all of these adhesions was performed and then laparoscopic splenic flexure mobilization was performed. This nicely and effectively straightened out the corner into a nice, rounded?shape curve and eliminated the sharp angulation that was there. Nonetheless, dense/firm scar tissue remains in the retroperitoneum/Gerota's fascia where the left kidney typically lies. Certainly this dense scar tissue alone could be the cause of her discomfort though I would not know how and the episodic nature of it and the relationship with bloating and bowel habits(which seem to be a mechanical/plumbing issue) ?Estimated blood loss: Scant ?Complications: None ?Drains: None ?Procedure details: ?The patient gave written consent and was in agreement with the risks, indications and benefits of the procedure.? The patient was taken to the operating room and laid supine with arms outstretched.? Anesthesia was administered which was tolerated very well.? Antibiotics were not indicated.? DVT prophylaxis had been given.? We performed a timeout and when we were all in agreement I began the case. ?We prepped and draped the abdomen in sterile fashion.? I used a Veress needle at the level of the costal margin in the left upper quadrant.? A 5 mm Optiview port was placed in the right upper quadrant without any difficulty under direct visualization.? I placed 2 other 5 mm ports under direct visualization. Diagnostic laparoscopy did not reveal any obvious abnormalities within the peritoneal cavity. We will reduce hidden underneath the normal?appearing omentum and the liver appeared healthy and normal. The spleen also appeared healthy and normal. I was able to easily expose the transverse colon and splenic flexure by tracking the omentum cephalad and there were no unusual attachments or adhesions.? At this point with the exposed colon visualized, I was able to easily and readily appreciate sharp angulation at the splenic flexure. The angle was more than 90 degrees and it had a tethered?appearance to it. Using a LigaSure I divided dense adhesions behind the flexure that were attached to both the sidewall as well as retroperitoneum and an unusual/abnormal fashion. Presumably these adhesions are secondary to desmoplastic reactions and/or prior surgery on her kidney. Next I mobilized the splenic flexure laparoscopically starting first along the lateral sidewall and I moved up and around the corner and then started in the distal transverse colon and divided the greater omentum off of the transverse colon towards the splenic flexure. I then medialized gently and bluntly and was able to make the splenic flexure and nice, rounded curve without any angulation at any location as it transitions from transverse colon into the descending colon. It cannot be understated the firmness and dense tissue appreciated and felt on top of Gerota's fascia of the retroperitoneum. While this has no understandable mechanical impact, it certainly could be an issue relative to pain in the left upper quadrant. Hemostasis was excellent. The 5mm ports were removed.? Skin was closed with absorbable sutures and Dermabond placed. Sponge, instrument and sharps counts were correct x3.? Patient was extubated and taken to the PACU in hemodynamically stable condition.
--- NOTE | 2022-12-11 10:58 | W.ANESPOSTOP ---
Postoperative Evaluation Date, Time and Location Date Performed: 12/11/22 Time Performed: 10:58 Patient Location: PACU Vital Signs Most Recent Imported Vital Signs: Most Recent Vital Signs Temp Pulse Resp BP Pulse Ox 36 C L 71 16 124/97 H 96 12/11/22 10:30 12/11/22 10:40 12/11/22 10:40 12/11/22 10:40 12/11/22 10:40 Pain Score Most Recent Pain Score: Most Recent Pain Score Pain Level 5 12/11/22 10:40 Assessment Mental Status: Awake (Alert & Oriented to Patient Baseline) Airway and Respiratory Function: Patent airway with normal (patient baseline) respiratory exam Cardiovascular Function: Hemodynamically Stable Hydration Status: Adequately Hydrated Nausea & Vomiting: No Nausea or Vomiting Pain: Pain is tolerable per patient Peripheral Nerve Block: Patient did not receive a nerve block
== END 2022-12-11 12:30 | disposition home or self-care (01) ==
PROVIDERS: PCP Family Medicine; Visit Provider Student in an Organized Health Care Education/Training Program
PROC: (CPT 49320; principal; 2022-12-11 09:15)
DX: K56.51 Intestinal adhesions [bands], with partial obstruction (principal)
CPT/HCPCS: 58662; 81025; J0131; J1100; J1644; J2001; J2405; J2704; J3475

== ENCOUNTER 2023-01-13 17:47 | Outpatient (REF) | payer OTHER, SELFPAY ==
[2023-01-13 16:55] LABS: HCT 40.9 % (36.0-46.0); HGB 13.7 g/dL (11.2-15.7); MCH 35.2 pg (27.0-33.0); MCHC 33.5 % (32.0-36.0); MCV 105 fL (80-95); Platelet Count 200 10^3/uL (130-400); RBC 3.89 10^6/uL (3.93-5.22); RDW 12.2 % (11.7-14.6); RDW-SD 47.6 fL; WBC 6.51 10^3/uL (4.4-10.8)
[2023-01-13 17:32] LABS: ALT 19 U/L (14-59); AST 20 U/L (15-37); Alkaline Phosphatase 29 U/L (46-116); Anion Gap 11.8 mmol/L (3-11); BUN 15 mg/dL (7-18); Bilirubin, Total 0.6 mg/dL (0.2-1.0); CO2 26.2 mmol/L (21.0-32.0); CREATININE 1.1 mg/dL (0.55-1.02); Calcium 9.3 mg/dL (8.5-10.1); Chloride 105 mmol/L (98-107); Estimated GFR 61.22 (mL/min/1.73m2); Glucose 75 mg/dL (74-106); Potassium 3.9 mmol/L (3.5-5.1); Sodium 143 mmol/L (136-145); Total Protein 7.3 g/dL (6.4-8.2); Vitamin B12 580 pg/mL (193-986)
[2023-01-13 17:43] LABS: Lipase 25 U/L (16-77)
== END 2023-01-13 17:48 | disposition home or self-care (01) ==
LOC: NCHCN 17:47
PROVIDERS: PCP Family Medicine; Visit Provider Family Medicine
DX: R10.12 Left upper quadrant pain (principal); E53.8 Deficiency of other specified B group vitamins
CPT/HCPCS: 80053; 83690; 85027; 82607

== ENCOUNTER → 2023-04-03 01:26 | Outpatient (CLI) | payer OTHER, SELFPAY ==
--- NOTE | 2023-04-03 | DI.CT_ITS ---
Exam(s) CT ABDOMEN PELVIS WO/W EXAM: CT ABDOMEN PELVIS WO/W CLINICAL HISTORY: RENAL CANCER LEFT C64.2. TECHNIQUE: Imaging Protocol: Axial computed tomography images with coronal and sagittal reformatted images were created and reviewed. Images were performed from the lung bases through the ischial tuberosities before IV contrast and fol lowing IV contrast using a 70 second delay, followed by 7 minutes delayed images. CONTRAST MATERIAL: Intravenous: Omnipaque 350 Contrast volume:100 cc Oral: no COMPARISON: CT CT CHEST PE ABD PELVIS W from 05/13/2021 CT,PT NM PET CT STANDARD SKULL BASE TO MID-THIGH from 07/27/[address] CHEST WO from 12/31/2021 FINDINGS: ABDOMEN: Lung Bases: Stable 5 millimeter nodule left lateral costophrenic angle. Dependent changes are noted posteriorly. Stable small right lower lobe nodule. Liver: Normal density. No measurable mass. Gallbladder and biliary tract: No radiodense calculus or dilation. Pancreas: Normal density, no abnormal calcifications or inflammatory process. Spleen: Normal. Kidneys: Area of scarring and suture material noted at the upper pole of the left kidney with the pre viously noted tumor was resected. No recurrence mass. No perinephric collection. Simple cyst lower pole left kidney.. No radiodense stones or obstructive uropathy. No suspicious masses seen. Adrenal glands: No masses seen. Lymph nodes: Within normal limits. Abdominal Aorta: Abdominal portion non-dilated. Soft tissues: PELVIS: Bladder: No gross wall thickening. No evidence of a mass.No evidence of calculi. Bowel: No obstruction or bowel wall thickening. Appendix normal. Peritoneal cavity: No ascites, collection or mesenteric inflammatory response. Soft tissues: Bones: Mild degenerative changes. Subchondral cyst right acetabulum. Reproductive organs: Unremarkable for age.. IMPRESSION: Status post resection of the mass at the upper pole of the left kidney. No evidence of recurrence ma ss. Evidence of adenopathy metastatic disease in the abdomen or pelvis. Stable basilar lung nodules. RADIATION DOSE DELIVERED: 2,139.17mGy.cm Total DLP DATA REPOSITORY: All CT scans at this facility are submitted to the National Radiology Data Registry (NRDR) Dose Index Registry (DIR) with the [employer] (A[employer]). RADIATION OPTIMIZATION: All CT scans at this facility use at least one of these dose optimization te chniques: automated exposure control; mA and/or kV adjustment per patient size (includes targeted exa ms where dose is matched to clinical indication); or iterative reconstruction.
--- NOTE | 2023-04-03 | DI.RAD_ITS ---
Exam(s) XR CHEST 2V PA LATERAL EXAM: XR CHEST 2V PA LATERAL CLINICAL HISTORY: LT RENAL CA, C63.2,S/P PARTIAL NEPHRECTOMY,ROUTINE SURVEILLANCE TECHNIQUE: 2D digital imaging was performed. COMPARISON: CT CT CHEST LUNG CANCER SCREEN from 11/22/2022 FINDINGS: HEART: Normal size. Aorta: Not dilated. PULMONARY VASCULATURE: Normal. LUNGS: Emphysematous and fibrotic changes. No visible mass. PLEURAL SPACE: No pleural effusion or pneumothorax. BONE:Unremarkable for age. IMPRESSION: No acute abnormality. DATA REPOSITORY: RADIATION DOSE DELIVERED:
[2023-04-03 15:20] LABS: ALT 20 U/L (14-59); AST 17 U/L (15-37); Albumin 3.8 g/dL (3.4-5.0); Alkaline Phosphatase 29 U/L (46-116); Anion Gap 7.6 mmol/L (3-11); BUN 22 mg/dL (7-18); Bilirubin, Total 0.5 mg/dL (0.2-1.0); CO2 28.4 mmol/L (21.0-32.0); CREATININE 1.1 mg/dL (0.55-1.02); Calcium 9.3 mg/dL (8.5-10.1); Chloride 102 mmol/L (98-107); Estimated GFR 61.22 (mL/min/1.73m2); Glucose 87 mg/dL (74-106); Potassium 3.5 mmol/L (3.5-5.1); Sodium 138 mmol/L (136-145); Total Protein 7.5 g/dL (6.4-8.2)
[2023-04-03] MEDS: Omnipaque 350 MG/ML 100 ML BTL IJ (15:37)
[2023-04-03] MEDS: Normal Saline - Diluent 50 ML VIAL IJ (15:38)
== END ==
PROVIDERS: PCP Family Medicine; Visit Provider Urology
DX: C64.2 Malignant neoplasm of left kidney, except renal pelvis (principal)
CPT/HCPCS: 80053; 71046; 74178; J3490

== ENCOUNTER 2023-05-21 20:40 | Outpatient (REF) | payer OTHER, SELFPAY ==
[2023-05-21 20:54] LABS: Source Nasal/Nares
[2023-05-21 21:56] LABS: COVID-19 PCR Negative (Negative)
== END 2023-05-21 20:41 | disposition home or self-care (01) ==
LOC: LBN 20:40
PROVIDERS: PCP Family Medicine; Visit Provider Physician Assistant Medical
DX: J02.9 Acute pharyngitis, unspecified (principal); Z11.52 Encounter for screening for COVID-19
CPT/HCPCS: 87635; 87070

== ENCOUNTER 2023-08-04 18:34 | Outpatient (REF) | payer OTHER, SELFPAY ==
[2023-08-04 19:24] LABS: ALT 21 U/L (14-59); AST 22 U/L (15-37); Albumin 3.9 g/dL (3.4-5.0); Alkaline Phosphatase 30 U/L (46-116); Anion Gap 8.9 mmol/L (3-11); BUN 14 mg/dL (7-18); Bilirubin, Total 0.3 mg/dL (0.2-1.0); CO2 28.1 mmol/L (21.0-32.0); CREATININE 1.1 mg/dL (0.55-1.02); Calcium 9.7 mg/dL (8.5-10.1); Chloride 102 mmol/L (98-107); Estimated GFR 61.22 (mL/min/1.73m2); Glucose 107 mg/dL (74-106); Potassium 3.7 mmol/L (3.5-5.1); Sodium 139 mmol/L (136-145); TSH 1.47 uIU/mL (0.36-3.74); Total Protein 7.6 g/dL (6.4-8.2)
== END 2023-08-04 18:35 | disposition home or self-care (01) ==
LOC: NCHCN 18:34
PROVIDERS: PCP Family Medicine; Visit Provider Family Medicine
DX: E66.3 Overweight (principal)
CPT/HCPCS: 80053; 84443

== ENCOUNTER 2023-08-13 08:34 | Outpatient (REF) | payer OTHER, SELFPAY | END 2023-08-13 08:35 | disposition home or self-care (01) | LOC: NCHCN 08:34 | PROVIDERS: PCP Family Medicine; Visit Provider Family Medicine | DX: R63.5 Abnormal weight gain (principal) | CPT/HCPCS: 82533 ==

== ENCOUNTER 2023-10-13 18:14 | Outpatient (REF) | payer OTHER, SELFPAY ==
[2023-10-13 19:23] LABS: Anion Gap 8.6 mmol/L (3-11); BUN 16 mg/dL (7-18); CO2 28.4 mmol/L (21.0-32.0); Calcium 9.7 mg/dL (8.5-10.1); Chloride 104 mmol/L (98-107); Estimated GFR 68.63 (mL/min/1.73m2); Glucose 89 mg/dL (74-106); Potassium 3.7 mmol/L (3.5-5.1); Sodium 141 mmol/L (136-145)
[2023-10-13 19:40] LABS: Hemoglobin A1C 5.5 % (<5.7)
== END 2023-10-13 18:15 | disposition home or self-care (01) ==
LOC: NCHCN 18:14
PROVIDERS: PCP Family Medicine; Visit Provider Family Medicine
DX: I10 Essential (primary) hypertension (principal); Z13.1 Encounter for screening for diabetes mellitus
CPT/HCPCS: 80048; 83036

== ENCOUNTER → 2024-01-23 18:18 | Outpatient (CLI) | payer OTHER, SELFPAY ==
--- NOTE | 2024-01-23 15:13 | DI.RAD_ITS ---
Exam(s) XR HIP PELVIS ADULT BL EXAM: XR HIP PELVIS ADULT BL CLINICAL HISTORY: PAIN LEFT HIP M25.552. TECHNIQUE: 2D digital imaging was performed of the pelvis and bilateral hips. Three images were obt ained. AP pelvis and lateral views of both hips were obtained. COMPARISON: No exams were available for comparison FINDINGS: BONES: No acute fracture is present. No bony destructive lesion is seen. Nonspecific mild sclerosis i s seen in the superior right acetabulum. JOINTS: No dislocation present. The joint spaces are well maintained. SOFT TISSUE: Tiny soft tissue nonspecific calcification is seen adjacent to the left superior acetabu lum. IMPRESSION: No significant arthrosis is seen in the hips bilaterally. DATA REPOSITORY: RADIATION DOSE DELIVERED:
--- NOTE | 2024-01-23 15:14 | DI.RAD_ITS ---
Exam(s) XR LUMBAR SPINE COMPLETE EXAM: XR LUMBAR SPINE COMPLETE CLINICAL HISTORY: RADICULOPATHY LUMBOSACRAL REGION M54.17. TECHNIQUE: 2D digital imaging was performed. COMPARISON: CT CT ABDOMEN PELVIS WO/W from 04/03/2023 FINDINGS: Five views. There is no evidence of fracture, listhesis, nor pars interarticularis defects. All of the disc spaces exhibit normal height. No scoliosis. Facet arthropathy noted at L5-S1 level. There is partial ankylosis of the left SI joint. No ankylosis of the right SI joint. The twelfth ribs are noted to be rudimentary. IMPRESSION: No disc space narrowing nor listhesis. Facet arthropathy at L5-S1 level noted. DATA REPOSITORY: RADIATION DOSE DELIVERED:
== END ==
PROVIDERS: PCP Family Medicine; Visit Provider Nurse Practitioner Family
DX: M54.17 Radiculopathy, lumbosacral region (principal)
CPT/HCPCS: 73521; 72110

== ENCOUNTER 2024-02-04 20:29 | Outpatient (REF) | payer OTHER, SELFPAY ==
[2024-02-04 21:22] LABS: ALT 29 U/L (14-59); AST 26 U/L (15-37); Albumin 3.7 g/dL (3.4-5.0); Alkaline Phosphatase 43 U/L (46-116); Anion Gap 8.9 mmol/L (3-11); BUN 21 mg/dL (7-18); Bilirubin, Total 0.49 mg/dL (0.2-1.0); CO2 29.1 mmol/L (21.0-32.0); CREATININE 1.1 mg/dL (0.55-1.02); Calcium 9.5 mg/dL (8.5-10.1); Chloride 105 mmol/L (98-107); Estimated GFR 60.84 (mL/min/1.73m2); Glucose 95 mg/dL (74-106); Potassium 4.2 mmol/L (3.5-5.1); Sodium 143 mmol/L (136-145); TSH (W/Ref FT4) 1.23 uIU/mL (0.36-3.74); Total Protein 7.3 g/dL (6.4-8.2)
== END 2024-02-04 20:30 | disposition home or self-care (01) ==
LOC: NCHCN 20:29
PROVIDERS: PCP Family Medicine; Visit Provider Family Medicine
DX: R60.0 Localized edema (principal)
CPT/HCPCS: 80053; 84443

== ENCOUNTER 2024-02-23 15:14 | Emergency (ER) | payer OTHER, SELFPAY ==
[2024-02-23 15:23] VITALS: BP 161/83; PULSE 105; RESP 16; TEMP 37.1; O2SAT 97
--- NOTE | 2024-02-23 15:30 | DI.US_ITS ---
Exam(s) US LOWER EXTREMITY VENOUS LT EXAM: US LOWER EXTREMITY VENOUS LT CLINICAL HISTORY: L calf swelling. TECHNIQUE: Lower extremity venous ultrasound performed using grayscale, color-flow, and spectral Do ppler analysis. COMPARISON: No exams were available for comparison FINDINGS: The common femoral, femoral and popliteal veins demonstrate normal compressibility, augmentation, and color Doppler. The posterior tibial veins are patent. No saphenous vein thrombosis or other superfi cial venous thrombosis is seen. No hematoma or Lemus's cyst is seen. IMPRESSION: Negative lower extremity ultrasound. No evidence of DVT. DATA REPOSITORY:
[2024-02-23 17:06] VITALS: RESP 16
--- NOTE | 2024-02-23 17:06 | ED.GENADUL_ITS ---
Discharge Plan Disposition Patient Disposition: Home Condition: Stable Discharge Details Clinical Impression: Sciatica of left side Primary Care Provider: Megha Khanna ED Provider: Jay Sun Home Meds and New Rx's Prescriptions: New ketorolac 10 mg tablet 10 mg PO QID PRN5 Days Qty: 20 0RF Rx Instructions: maximum total duration of 5 days from all oral, intranasal, or parenteral formulations prednisone 20 mg tablet 40 mg PO DAILY 5 Days Qty: 10 0RF methocarbamol 750 mg tablet 750 mg PO QID 10 Days Qty: 40 0RF Continued albuterol sulfate 90 mcg/actuation HFA aerosol inhaler 2 puff inhalation Q4H PRN PRN (Reason: shortness of breath or wheezing) Qty: 8.5 12RF omeprazole 20 mg capsule,delayed release(DR/EC) 20 mg PO DAILY lamotrigine [Lamictal] 100 mg tablet 50 mg PO BID Qty: 90 3RF gabapentin 300 mg capsule 300 mg PO BID Qty: 180 3RF cholecalciferol (vitamin D3) 50 mcg (2,000 unit) tablet 2,000 unit PO DAILY cyanocobalamin (vitamin B-12) 1,000 mcg tablet 1,000 mcg PO DAILY triamcinolone acetonide 0.1 % ointment 1 applic topical BID PRN Stiolto Respimat 2.5-2.5 mcg/actuation mist See Rx Instructions .ROUTE .COMPLEX Qty: 4 12RF Dose Instruction: INHALE TWO PUFFS BY MOUTH EVERY DAY Rx Instructions: INHALE TWO PUFFS BY MOUTH EVERY DAY furosemide 20 mg tablet 20 mg PO QAM Patient Comments: TAKE ONE TABLET BY MOUTH EVERY DAY FOR 10 DAYS Discharge Instructions Instructions: Ketorolac (Systemic), Methocarbamol, Prednisone, Sciatica ED Additional Instructions: You were seen in the emergency department for the pain of your left lower back rating down your left leg, is consistent with a sciatica syndrome, you do go to physical therapy for this problem, I am adding some medications that should aid in relief of your pain. I have sent prescriptions of Toradol or ketorolac which is a stronger prescription strength anti-inflammatory to [facility] in [place] as well as 5 days of prednisone to help with anti-inflammatory effects in the central nervous system as well as a nonsedating muscle relaxer called methocarbamol to take as directed. You may also apply topical Voltaren gel to the areas of pain which is a topical anti-inflammatory that is [id number], the generic name of this is topical diclofenac. You may also apply spuv-nbv-[id number] lidocaine patches to the area of pain each day for 12 hours. Your ultrasound was negative for any blood clots of the lower extremity today and I do not find consistent exam findings with vascular causes. Please return to the emergency department for any severe increase in the swelling of your left lower extremity, any loss of circulation or sensation to the left distal lower extremity. Referrals: Megha Khanna MD [Primary Care Provider] - Discharge Data Discharge Date/Time-TO BE ENTERED AT DEPARTURE: 02/23/24 17:38 HPI General Date/Time Provider Initiated Documentation: 02/23/24 15:28 . HPI Narrative: 53 year-old female presents to ED today by POV/ambulating with a chief complaint of L lower extremity swelling, mild, with onset 2 weeks ago- started lasix but seemed to help, stating her swelling is back- pain radiating down her leg, sees PT for sciatica. Quality described as generalized pain, no radiation to redness, severe swelling, lesions, skin changes/bruising, medial thigh pain. Severity is described as mild to moderate. Palliating factors include Lasix did help with her swelling. Provoking factors include nothing specific. Events leading up to the incident/Associated Symptoms: Patient denies hormonal control, denies clot history- concerned for clot as she has to fly next week. Patient not anticoagulated. Related Data Home Medications ?Medication ?Instructions ?Recorded ?Confirmed gabapentin 300 mg capsule 300 mg PO BID #180 caps 08/10/18 02/23/24 lamotrigine 100 mg tablet 50 mg (1/2 x 100 mg) PO BID #90 08/10/18 02/23/24 (Lamictal) tabs cholecalciferol (vitamin D3) 50 2,000 unit PO DAILY 09/07/20 02/23/24 mcg (2,000 unit) tablet cyanocobalamin (vitamin B-12) 1,000 mcg PO DAILY 04/09/22 02/23/24 1,000 mcg tablet albuterol sulfate 90 mcg/actuation 2 puff inhalation Q4H PRN PRN 11/07/22 02/23/24 aerosol inhaler shortness of breath or wheezing #8.5 grams omeprazole 20 mg capsule,delayed 20 mg PO DAILY 12/25/22 02/23/24 release triamcinolone acetonide 0.1 % 1 applic topical BID PRN 12/25/22 02/23/24 topical ointment tiotropium 2.5 mcg-olodaterol 2.5 See Rx Instructions .Route 08/25/23 02/23/24 mcg/actuation mist for inhalation .COMPLEX #4 grams (Stiolto Respimat) furosemide 20 mg tablet 20 mg PO QAM 02/23/24 02/23/24 ketorolac 10 mg tablet 10 mg PO QID PRN 5 days #20 tabs 02/23/24 methocarbamol 750 mg tablet 750 mg PO QID 10 days #40 tabs 02/23/24 prednisone 20 mg tablet 40 mg (2 x 20 mg) PO DAILY 5 days 02/23/24 #10 tabs Previous Rx's ?Medication ?Instructions ?Recorded gabapentin 300 mg capsule 300 mg PO BID #180 caps 08/10/18 lamotrigine 100 mg tablet 50 mg (1/2 x 100 mg) PO BID #90 08/10/18 (Lamictal) tabs albuterol sulfate 90 mcg/actuation 2 puff inhalation Q4H PRN PRN 11/07/22 aerosol inhaler shortness of breath or wheezing #8.5 grams tiotropium 2.5 mcg-olodaterol 2.5 See Rx Instructions .Route 08/25/23 mcg/actuation mist for inhalation .COMPLEX #4 grams (Stiolto Respimat) ketorolac 10 mg tablet 10 mg PO QID PRN 5 days #20 tabs 02/23/24 methocarbamol 750 mg tablet 750 mg PO QID 10 days #40 tabs 02/23/24 prednisone 20 mg tablet 40 mg (2 x 20 mg) PO DAILY 5 days 02/23/24 #10 tabs Allergies Allergy/AdvReac Type Severity Reaction Status Date / Time latex Allergy Severe Hives Verified 02/23/24 15:23 skin affix Allergy Intermediate hives Uncoded 02/23/24 15:23 General Stated Complaint: Vascular CANDELARIA: 3 Review of Systems All systems reviewed & are unremarkable except as noted in HPI and below Exam Narrative Exam Narrative: GENERAL APPEARANCE: Well-nourished, non-toxic, awake and alert, atraumatic, no acute distress. SKIN: Warm, pink, dry, intact, without rashes/lesions/ulcerations. HEAD: Normocephalic, atraumatic, normal hair distribution for gender/age. EYES: Normal conjunctiva, no exudates on lids/lashes. ENT: Nares patent, no circumoral cyanosis, no facial swelling NECK: Supple, trachea midline, painless cervical ROM. LUNGS/CHEST: Non-labored respirations, normal A/P diameter, symmetrical expansion, no chest wall deformity HEART (CV/PV): Regular rate, L dorsalis pedis pulse 2+, no peripheral edema, no JVD. ABDOMEN: Soft, non-distended, no guarding. MSK: Normal ROM, no swelling/deformity to bilateral UEs or LEs, moving all extremities without weakness, no cyanosis, spine midline without tenderness, normal curvature, mild swelling, not discernible definitely not greater than 3 cm at tibial tuberosity of left lower extremity, Homans negative, no skin changes, no medial thigh tenderness, no knee pain or swelling or erythema or warmth to touch, has pain in left sciatic distribution through the glutes without lumbar step-off or crepitus NEURO: Mental Status AAOx4 - alert to person, place, time, events No facial droop, no forehead involvement. Motor: No focal weakness - strength 5/5 in bilateral UEs and LEs, proximal and distal, symmetric. Sensory: sensation intact to light touch globally. Gait normal: patient ambulated without ataxia into ED room. PSYCH: euthymic, cooperative, pleasant, appropriate speech Course Vital Signs Vital signs: Vital Signs Temperature 37.1 C 02/23/24 15:23 Pulse 105 H 02/23/24 15:23 Respiratory Rate 16 02/23/24 15:23 Blood Pressure 161/83 H 02/23/24 15:23 Pulse Oximetry 97 02/23/24 15:23 Temperature 37.1 C 02/23/24 15:23 Temperature Source Temporal Artery Scan 02/23/24 15:23 Pulse 105 H 02/23/24 15:23 Respiratory Rate 16 02/23/24 15:23 Respiratory Effort Normal, Non-Labored 02/23/24 15:27 Blood Pressure 161/83 H 02/23/24 15:23 Blood Pressure Position Sitting 02/23/24 15:23 Pulse Oximetry 97 02/23/24 15:23 Oxygen Delivery Method Room Air 02/23/24 15:23 Oxygen Flow Rate 0 02/23/24 15:23 Pain Level 7 02/23/24 15:23 Medical Decision Making This dictation utilizes [id number] dictation software and may contain unedited grammatical errors. 53 year-old female presents to ED today by POV/ambulating with a chief complaint of L lower extremity swelling, mild, with onset 2 weeks ago- started lasix but seemed to help, stating her swelling is back- pain radiating down her leg, sees PT for sciatica. Quality described as generalized pain, no radiation to redness, severe swelling, lesions, skin changes/bruising, medial thigh pain. Severity is described as mild to moderate. Palliating factors include Lasix did help with her swelling. Provoking factors include nothing specific. Events leading up to the incident/Associated Symptoms: Patient denies hormonal control, denies clot history- concerned for clot as she has to fly next week. Patients' medical history: COPD with asthma, psychogenic nonepileptic seizure, MS, chronic pain of toes of both feet, hypertension, GERD. Family and social history: Tobacco use, no recent sedentary period. Pertinent exam findings / vital signs include mild swelling, not discernible definitely not greater than 3 cm at tibial tuberosity of left lower extremity, Homans negative, no skin changes, no medial thigh tenderness, no knee pain or swelling or erythema or warmth to touch, has pain in left sciatic distribution through the glutes without lumbar step-off or crepitus. Differential / pathologies of concern include sciatica, unlikely DVT/SVT, not cellulitis, may be muscle strain or sprain, arthritis. Diagnostic studies of: -US L LE DVT study-no findings. Interventions of: -Treatment for sciatica, muscle relaxer, prednisone. ED Course/Assessment/Plan: 53-year-old female patient presents with acute on chronic left lower extremity pain, she does report she has pain shooting down to her glutes to her left calf, I do not suspect any vascular pathology or infectious etiology, there is no sign of cellulitis or clot on exam, ultrasound is negative, I discussed this with the patient and reassured her that she is cleared to fly, I stressed that she follow-up with her primary care provider for continued pain, prescribed her Toradol, muscle relaxer, prednisone for sciatica relief. Findings not consistent with SVT/DVT, cellulitis, neurovascular compromise, fracture or trauma. Disposition of sciatica of left side. Patient verbalized understanding of the plan and return to ED criteria and engaged in shared decision making. Medical Records Medical records reviewed: Yes I reviewed the patient's medical records. Imaging Data Radiologic Study: Attestation: I personally reviewed and interpreted this imaging study as follows: Imaging: Ultrasound Radiologist's impression: EXAM: US LOWER EXTREMITY VENOUS LT CLINICAL HISTORY: L calf swelling. TECHNIQUE: Lower extremity venous ultrasound performed using grayscale, color- flow, and spectral Doppler analysis. COMPARISON: No exams were available for comparison FINDINGS: The common femoral, femoral and popliteal veins demonstrate normal compressibility, augmentation, and color Doppler. The posterior tibial veins are patent. No saphenous vein thrombosis or other superficial venous thrombosis is seen. No hematoma or Lemus's cyst is seen. IMPRESSION: Negative lower extremity ultrasound. No evidence of DVT. 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 H/O LEEP H/O wisdom tooth extraction Family History Sister No problems noted. Social History Smoking/Tobacco Use Status: Current every day Tobacco Type: cigarettes Smoking packs per day: 0.5 Smoking cigarettes per day: 10.0 Smoking risk assessment performed?: Yes Alcohol Intake: current Alcohol Intake frequency: 0-2 drinks per day Alcohol type: beer and hard liquor Drug use: Never Substance use type: does not use Adopted: Yes Housing: house Current gender identity: female Do you feel safe at home: Yes Do you feel safe in your relationship?: Yes
[2024-02-23 17:37] VITALS: BP 159/97; PULSE 89; RESP 18; O2SAT 97
== END 2024-02-23 17:38 | disposition home or self-care (01) ==
PROVIDERS: Emergency Provider Physician Assistant; PCP Family Medicine
DX: M54.32 Sciatica, left side (principal); R22.42 Localized swelling, mass and lump, left lower limb; I10 Essential (primary) hypertension; G35 Multiple sclerosis; Z85.528 Personal history of other malignant neoplasm of kidney; Z90.5 Acquired absence of kidney
CPT/HCPCS: 99285; 93971; 99283

== ENCOUNTER 2024-03-25 10:48 | Outpatient (CLI) | payer OTHER, SELFPAY ==
--- NOTE | 2024-03-25 | DI.RAD_ITS ---
Exam(s) XR TIB/FIB LT XR FOOT LT COMPLETE XR ANKLE LT COMPLETE XR FEMUR LT EXAM: XR FOOT LT COMPLETE, XR ankle LT complete, XR femur LT and XR tib/fib LT CLINICAL HISTORY: PAIN LEFT FOOT M79.672. TECHNIQUE: 2D digital imaging was performed of the left femur, tib/fib, ankle and foot. Twelve imag es were obtained. AP, oblique and lateral views were obtained. COMPARISON: CR XR HIP PELVIS ADULT BL from 01/23/2024 FINDINGS: BONES: There is an acute fracture through the left femoral neck. There is mild loss of the normal fe moral neck angle. The fracture is mildly displaced. No bony destructive lesion is seen. JOINTS: No dislocation present. The joint spaces in the foot and ankle are well maintained. The visu alized knee is well maintained. The hip is otherwise well maintained. SOFT TISSUE: Normal. IMPRESSION: 1. Acute fracture through the left femoral neck with mild displacement. 2. Otherwise unremarkable examination. DATA REPOSITORY: RADIATION DOSE DELIVERED:
== END 2024-03-25 11:08 ==
LOC: DI 10:49
PROVIDERS: PCP Family Medicine; Visit Provider Physician Assistant Medical
DX: S72.042A Displaced fracture of base of neck of left femur, initial encounter for closed fracture (principal); X58.XXXA Exposure to other specified factors, initial encounter; M25.572 Pain in left ankle and joints of left foot
CPT/HCPCS: 73552; 73590; 73610; 73630

== ENCOUNTER 2024-03-25 16:23 | Emergency (ER) | payer OTHER, SELFPAY ==
[2024-03-25 16:27] VITALS: BP 164/80; PULSE 108; RESP 20; TEMP 37; O2SAT 97
--- NOTE | 2024-03-25 16:30 | DI.CT_ITS ---
Exam(s) CT PELVIC WO EXAM: CT PELVIC WO CLINICAL HISTORY: L hip fracture, needs surgical fixation. TECHNIQUE: Imaging Protocol: Axial computed tomography images with coronal and sagittal reformatted images were created and reviewed CONTRAST MATERIAL: Intravenous: none Oral: None COMPARISON: CT CT CHEST PE ABD PELVIS W from 05/13/2021 CR XR LUMBAR SPINE COMPLETE from 01/23/2024 CR XR HIP PELVIS ADULT BL from 01/23/2024 CR XR FOOT LT COMPLETE from 03/25/2024 FINDING: PELVIS: OSSEOUS: There is a low femoral neck-high intertrochanteric fracture in the left hip with minimal dis placement. This has subacute appearance. There is no osseous lesion at this level. No prominent sherie int effusion. No dislocation of the femoral head and no obvious degenerative changes in the hip join t. Subtrochanteric region appears unremarkable. There is no pulsion of the lesser trochanter. No o sseous lesions.The opposite-right hip is intact although there is a benign-appearing bone lesion in t he superior aspect of the acetabulum which is peripherally sclerotic and is most probably a conglomer ation subarticular cysts measuring 1.8 cm AP by 1.7 cm wide by 1.5 cm craniocaudal. There are no cys ts in the ipsilateral femoral head. Pubic rami and ischial tuberosities are intact.Right sacroiliac joint appears unremarkable. There is partial ankylosis of the left SI joint. ANTERIOR ABDOMINAL WALL/GI:No evidence of significant anterior abdominal wall nor inguinal hernia in the pelvis evident.No obvious bowel obstruction. No evidence of appendicitis.No evidence of acute si gmoid diverticulitis.No free fluid in the pelvis. LYMPH NODES: There is no intrapelvic nor inguinal adenopathy. URINARY BLADDER: Moderately distended no calculi nor obvious masses evident REPRODUCTIVE: Uterus and adnexal regions appear unremarkable and there is no free fluid in the pelvis .. IMPRESSION: 1. There is a low femoral neck-upper intertrochanteric fracture of the left hip noted. Minimal displ acement. No osseous lesions in the left hip. 2. No fractures in the opposite-right hip but there is a peripherally sclerotic benign-appearing bone lesion in the right hip acetabulum measuring 18 x 17 x 15 mm. 3. Moderately distended urinary bladder. Called by myself to ER provider 03/25/2024 at 5:38 p.m. RADIATION DOSE DELIVERED: 348.39mGy.cm Total DLP DATA REPOSITORY: All CT scans at this facility are submitted to the National Radiology Data Registry (NRDR) Dose Index Registry (DIR) with the [employer] (A[employer]). RADIATION OPTIMIZATION: All CT scans at this facility use at least one of these dose optimization te chniques: automated exposure control; mA and/or kV adjustment per patient size (includes targeted exa ms where dose is matched to clinical indication); or iterative reconstruction.
--- NOTE | 2024-03-25 16:42 | W.ED.GENAD ---
Discharge Plan Disposition Patient Disposition: Against Medical Advice Condition: Stable Discharge Details Clinical Impression: Displaced intertrochanteric fracture of left femur Primary Care Provider: Megha Khanna ED Provider: Jay Sun Home Meds and New Rx's Prescriptions: No Action albuterol sulfate 90 mcg/actuation HFA aerosol inhaler 2 puff inhalation Q4H PRN PRN (Reason: shortness of breath or wheezing) Qty: 8.5 12RF omeprazole 20 mg capsule,delayed release(DR/EC) 20 mg PO DAILY lamotrigine [Lamictal] 100 mg tablet 50 mg PO BID Qty: 90 3RF gabapentin 300 mg capsule 300 mg PO BID Qty: 180 3RF cholecalciferol (vitamin D3) 50 mcg (2,000 unit) tablet 2,000 unit PO DAILY cyanocobalamin (vitamin B-12) 1,000 mcg tablet 1,000 mcg PO DAILY triamcinolone acetonide 0.1 % ointment 1 applic topical BID PRN Stiolto Respimat 2.5-2.5 mcg/actuation mist See Rx Instructions .ROUTE .COMPLEX Qty: 4 12RF Dose Instruction: INHALE TWO PUFFS BY MOUTH EVERY DAY Rx Instructions: INHALE TWO PUFFS BY MOUTH EVERY DAY furosemide 20 mg tablet 20 mg PO QAM Patient Comments: TAKE ONE TABLET BY MOUTH EVERY DAY FOR 10 DAYS Discharge Instructions Instructions: Femur Fracture Additional Instructions: You were seen in the emergency department for your left hip fracture, this needs surgical repair and our orthopedist this evening declined surgery here he feels this is more appropriate for a large trauma facility as it may require a fibular graft and specialized trauma surgery equipment. I reached out to [facility] who refused to consult, I have a pending consult with [facility] orthopedics that I will no longer be able to pursue because you chose to leave AGAINST MEDICAL ADVICE. You chose to leave AGAINST MEDICAL ADVICE due to time constraints and not wanting to stay in the hospital, you have been ambulating for 10 weeks of this is not good for your fracture and you likely need to be on bedrest and received surgery in the acute period which is why this is AGAINST MEDICAL ADVICE. You risk permanent disability of your left leg, I recommend you use regular doses of Tylenol and ibuprofen as well as ice the area and stay completely nonweightbearing with the crutches we have provided. Please call orthopedics tomorrow for consult, please return to the emergency department for any signs of neurovascular compromise of your left lower extremity. Referrals: [facility] [Provider Group] Megha Khanna MD [Primary Care Provider] - [facility] General Date/Time Provider Initiated Documentation: 03/25/24 16:31. HPI Narrative: 53 year-old female presents to ED today by POV/ambulating with antalgic gait with a chief complaint of ongoing L hip pain for the past 10 weeks- patient has been seen at and diagnosed with sciatica, negative lumbar XRs- had hip XR today which shows L femoral head fracture likely from 10 weeks duration of ambulating on possible stress fracture. 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 Severity is described as 10/10. Palliating factors include nothing specific. Provoking factors include ambulating. Events leading up to the incident/Associated Symptoms: Orthopaedics is aware. Patient not anticoagulated. Related Data Home Medications ?Medication ?Instructions ?Recorded ?Confirmed gabapentin 300 mg capsule 300 mg PO BID #180 caps 08/10/18 03/25/24 lamotrigine 100 mg tablet 50 mg (1/2 x 100 mg) PO BID #90 08/10/18 03/25/24 (Lamictal) tabs cholecalciferol (vitamin D3) 50 2,000 unit PO DAILY 09/07/20 03/25/24 mcg (2,000 unit) tablet cyanocobalamin (vitamin B-12) 1,000 mcg PO DAILY 04/09/22 03/25/24 1,000 mcg tablet albuterol sulfate 90 mcg/actuation 2 puff inhalation Q4H PRN PRN 11/07/22 03/25/24 aerosol inhaler shortness of breath or wheezing #8.5 grams omeprazole 20 mg capsule,delayed 20 mg PO DAILY 12/25/22 03/25/24 release triamcinolone acetonide 0.1 % 1 applic topical BID PRN 12/25/22 03/25/24 topical ointment tiotropium 2.5 mcg-olodaterol 2.5 See Rx Instructions .Route 08/25/23 03/25/24 mcg/actuation mist for inhalation .COMPLEX #4 grams (Stiolto Respimat) furosemide 20 mg tablet 20 mg PO QAM 02/23/24 03/25/24 Previous Rx's ?Medication ?Instructions ?Recorded gabapentin 300 mg capsule 300 mg PO BID #180 caps 08/10/18 lamotrigine 100 mg tablet 50 mg (1/2 x 100 mg) PO BID #90 08/10/18 (Lamictal) tabs albuterol sulfate 90 mcg/actuation 2 puff inhalation Q4H PRN PRN 11/07/22 aerosol inhaler shortness of breath or wheezing #8.5 grams tiotropium 2.5 mcg-olodaterol 2.5 See Rx Instructions .Route 08/25/23 mcg/actuation mist for inhalation .COMPLEX #4 grams (Stiolto Respimat) Allergies Allergy/AdvReac Type Severity Reaction Status Date / Time latex Allergy Severe Hives Verified 02/23/24 15:23 skin affix Allergy Intermediate hives Uncoded 02/23/24 15:23 General Stated Complaint: Orthopedic CANDELARIA: 3 Review of Systems All systems reviewed & are unremarkable except as noted in HPI and below Exam Narrative Exam Narrative: GENERAL APPEARANCE: Well-nourished, non-toxic, awake and alert, atraumatic, no acute distress. SKIN: Warm, pink, dry, intact, without rashes/lesions/ulcerations. HEAD: Normocephalic, atraumatic, normal hair distribution for gender/age. EYES: Normal conjunctiva, no exudates on lids/lashes. ENT: Nares patent, no circumoral cyanosis, no facial swelling NECK: Supple, trachea midline, painless cervical ROM. LUNGS/CHEST: Non-labored respirations, normal A/P diameter, symmetrical expansion, no chest wall deformity HEART (CV/PV): Regular rate, L dorsalis pedis pulse 2+, no peripheral edema, no JVD. ABDOMEN: Soft, non-distended, no guarding. MSK: Normal ROM, no swelling/deformity to bilateral UEs or LEs, moving all extremities without weakness, no cyanosis, spine midline without tenderness, normal curvature. L LE: Severe tenderness at the left greater trochanter without ecchymosis, barely able to SLR the left lower extremity due to pain, no unilateral leg swelling or skin changes, neurovascularly intact in the distal left lower extremity NEURO: Mental Status AAOx4 - alert to person, place, time, events No facial droop, no forehead involvement. Motor: No focal weakness - strength 5/5 in bilateral UEs and LEs, proximal and distal, symmetric. Sensory: sensation intact to light touch globally. Gait antalgic. PSYCH: euthymic, cooperative, pleasant, appropriate speech Course Vital Signs Vital signs: Vital Signs Temperature 37.0 C 03/25/24 16:27 Pulse 108 H 03/25/24 16:27 Respiratory Rate 20 03/25/24 16:27 Blood Pressure 164/80 H 03/25/24 16:27 Pulse Oximetry 97 03/25/24 16:27 Temperature 37.0 C 03/25/24 16:27 Pulse 108 H 03/25/24 16:27 Respiratory Rate 20 03/25/24 16:27 Respiratory Effort Normal 03/25/24 16:32 Blood Pressure 164/80 H 03/25/24 16:27 Blood Pressure Position Sitting 03/25/24 16:27 Pulse Oximetry 97 03/25/24 16:27 Oxygen Delivery Method Room Air 03/25/24 16:27 Oxygen Flow Rate 0 03/25/24 16:27 Pain Level 10 03/25/24 16:27 Medical Decision Making This dictation utilizes [id number] dictation software and may contain unedited grammatical errors. 53 year-old female presents to ED today by POV/ambulating with antalgic gait with a chief complaint of ongoing L hip pain for the past 10 weeks- patient has been seen at and diagnosed with sciatica, negative lumbar XRs- had hip XR today which shows L femoral head fracture likely from 10 weeks duration of ambulating on possible stress fracture. 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 Severity is described as 10/10. Palliating factors include nothing specific. Provoking factors include ambulating. Events leading up to the incident/Associated Symptoms: Orthopaedics is aware. Patients' medical history: COPD with asthma, cervical dysplasia, multiple sclerosis, pseudoseizure, primary malignant neoplasm of kidney, hypertension, overweight. Family and social history: works at [employer], endorses 1 drink ETOH today. Pertinent exam findings / vital signs include L hip tendenress, gait NT, benign CP status, neuro intact, NV intact distal to L hip. Differential / pathologies of concern include hip fracture - known on XR prior to arrival, pathologic fracture. Diagnostic studies of: -CT Pelvis wo Contrast - shows mildly displaced introchanteric L hip fracture Interventions of: -crutches given but refused, patient signing out AMA after extensive efforts were made to admit here and ultimately transfer out. ED Course/Assessment/Plan: 53-year-old female presents with a likely chemical stress fracture though pathologic fracture is not completely ruled out this time intertrochanteric fracture of the left hip that she has been ambulating on for the past 10 weeks and seen and diagnosed with sciatica at [facility] prior, had an x-ray today and was directed to go to a trauma center as we had no capacity but came to this ER, I performed a CT without contrast and consulted with orthopedics on-call Dr. Birmingham who states this may need a trauma surgeon and possible fibular graft to heal correctly does not feel that this is appropriate for this facility. Attempted to reach out to [facility] switchboard several times but they did not answer, reached out to [facility] on-call Dr. Leos who refused to consult through the [facility] call service-patient had requested I reach out to this facility first. Please to call with [facility] transfer center and was awaiting callback from orthopedics when the patient decided to leave AGAINST MEDICAL ADVICE we had previously discussed this that she had told me she wished to leave if workup took longer than 3 hours I advised her that she is not to be weightbearing and she needs to be on bedrest and have surgery on that this would be an AGAINST MEDICAL ADVICE discharge from the facility, I did provide her crutches to aid in nonweightbearing and recommend she use therapeutic dosing of Tylenol and ibuprofen and RICE therapy to the left hip and present to a hospital that would likely be able to perform her surgery. I suggest she call orthopedics office tomorrow to discuss. Findings not consistent with neurovascular compromise. Disposition of Displaced intertrochanteric fracture of left femur. Patient verbalized understanding of the plan and return to ED criteria and engaged in shared decision making. Medical Records Medical records reviewed: Yes I reviewed the patient's medical records. Imaging Data Radiologic Study: Attestation: I personally reviewed and interpreted this imaging study as follows: Imaging: CT Scan Radiologist's impression: EXAM: CT PELVIC WO CLINICAL HISTORY: L hip fracture, needs surgical fixation. TECHNIQUE: Imaging Protocol: Axial computed tomography images with coronal and sagittal reformatted images were created and reviewed CONTRAST MATERIAL: Intravenous: none Oral: None COMPARISON: CT CT CHEST PE ABD PELVIS W from 05/13/2021 CR XR LUMBAR SPINE COMPLETE from 01/23/2024 CR XR HIP PELVIS ADULT BL from 01/23/2024 CR XR FOOT LT COMPLETE from 03/25/2024 FINDING: PELVIS: OSSEOUS: There is a low femoral neck-high intertrochanteric fracture in the left hip with minimal displacement. This has subacute appearance. There is no osseous lesion at this level. No prominent joint effusion. No dislocation of the femoral head and no obvious degenerative changes in the hip joint. Subtrochanteric region appears unremarkable. There is no pulsion of the lesser trochanter. No osseous lesions.The opposite-right hip is intact although there is a benign-appearing bone lesion in the superior aspect of the acetabulum which is peripherally sclerotic and is most probably a conglomeration subarticular cysts measuring 1.8 cm AP by 1.7 cm wide by 1.5 cm craniocaudal. There are no cysts in the ipsilateral femoral head. Pubic rami and ischial tuberosities are intact.Right sacroiliac joint appears unremarkable. There is partial ankylosis of the left SI joint. ANTERIOR ABDOMINAL WALL/GI:No evidence of significant anterior abdominal wall nor inguinal hernia in the pelvis evident.No obvious bowel obstruction. No evidence of appendicitis.No evidence of acute sigmoid diverticulitis.No free fluid in the pelvis. LYMPH NODES: There is no intrapelvic nor inguinal adenopathy. URINARY BLADDER: Moderately distended no calculi nor obvious masses evident REPRODUCTIVE: Uterus and adnexal regions appear unremarkable and there is no free fluid in the pelvis.. IMPRESSION: 1. There is a low femoral neck-upper intertrochanteric fracture of the left hip noted. Minimal displacement. No osseous lesions in the left hip. 2. No fractures in the opposite-right hip but there is a peripherally sclerotic benign-appearing bone lesion in the right hip acetabulum measuring 18 x 17 x 15 mm. 3. Moderately distended urinary bladder. Called by myself to ER provider 03/25/2024 at 5:38 p.m. 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 H/O LEEP H/O wisdom tooth extraction Family History Sister No problems noted. Social History Smoking/Tobacco Use Status: Current every day Tobacco Type: cigarettes Smoking packs per day: 0.5 Smoking cigarettes per day: 10.0 Smoking risk assessment performed?: Yes Alcohol Intake: current Alcohol Intake frequency: 0-2 drinks per day Alcohol type: beer and hard liquor Drug use: Never Substance use type: does not use Adopted: Yes Housing: house Current gender identity: female Do you feel safe at home: Yes Do you feel safe in your relationship?: Yes PAWSS Have you Been Recently Intoxicated or Drunk Within the Last 30 days?: No Have you Ever Experienced Previous Episodes of Alcohol Withdrawal?: No Have you ever Experienced Withdrawal Seizures?: No Have you ever Experienced Delirium Tremens(DT)s?: No Have you ever undergone Alcohol Rehabilitation Treatment (i.e, inpt ot outpatient treatment programs)?: No Have you ever Experienced Blackouts?: No Have you ever Combined Alcohol with other Downers within the last 90 days?: No Have you ever Combined Alcohol with any other Substance of Abuse during the last 90 days?: No Positive Blood Alcohol level on Presentation? [PCS.BAL]: No Evidence of Increased Autonomic Activity (i.e. HR>120, tremor, sweating, agitation, nausea)?: No Result: 0
--- NOTE | 2024-03-25 18:20 | NUR.NOTE ---
Nursing Note:dinner tray giv en to the pt awaiting POC
--- NOTE | 2024-03-25 20:08 | W.ORTHOCONSU ---
Date of service: 03/25/24 Time of Service: 20:08 Assessment and Plan Assessment and plan (1) Displaced intertrochanteric fracture of left femur: Status: Acute Assessment and plan: 53 year old female with somewhat unusual subacute displaced Left hip fracture (basicervical vs femoral neck) In brief, Left hip pain after misstep at work about the middle of December with significant hip pain at times, initial x-rays negative, and subsequently treated with PT but struggled requiring walker for ambulation. Pain worsened with new x-rays today showing displaced fx. CT does not show any tumor or lesion. Appears subacute consistent with the history of probable occult, incomplete, or stress fx that worsened over time. Appearance is neither the typical femoral neck or basicervical/ intertroch fx. Given the subacute nature and in-between fx type, recommend treatment by trauma orthopedic surgeon at tertiary care facility to optimize reduction and fixation. If transfer or timely care cannot be arranged elsewhere, could explore options for admission and obtaining surgical instruments & implants needed for this case to be done here. Notable time spent reviewing this case and discussing with orthopedic colleagues. 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 H/O LEEP H/O wisdom tooth extraction Family History Sister No problems noted. Social History Smoking/Tobacco Use Status: Current every day Tobacco Type: cigarettes Smoking packs per day: 0.5 Smoking cigarettes per day: 10.0 Smoking risk assessment performed?: Yes Alcohol Intake: current Alcohol Intake frequency: 0-2 drinks per day Alcohol type: beer and hard liquor Drug use: Never Substance use type: does not use Adopted: Yes Housing: house Current gender identity: female Do you feel safe at home: Yes Do you feel safe in your relationship?: Yes Results Last Vital Signs Temp 98.6 F 03/25/24 16:27 Pulse 108 H 03/25/24 16:27 Resp 20 03/25/24 16:27 BP 164/80 H 03/25/24 16:27 Pulse Ox 97 03/25/24 16:27
--- NOTE | 2024-03-26 10:50 | NUR.NOTE ---
Accessed chart for billing information for [facility]. Nursing Note:
== END 2024-03-25 20:01 | disposition left against medical advice (07) ==
PROVIDERS: Emergency Provider Physician Assistant; PCP Family Medicine
DX: S72.142A Displaced intertrochanteric fracture of left femur, initial encounter for closed fracture (principal); W19.XXXA Unspecified fall, initial encounter; Z53.29 Procedure and treatment not carried out because of patient's decision for other reasons
CPT/HCPCS: 99284; 72192; 99283

== ENCOUNTER 2024-06-07 08:41 | Outpatient (REF) | payer OTHER, SELFPAY ==
[2024-06-07 15:41] LABS: Bilirubin Negative (Negative); Blood Trace-intact (Negative); Clarity Clear (Clear); Glucose Negative (Negative); Ketones Negative (Negative); Leukocyte Esterase Negative (Negative); Nitrite Negative (Negative); Urobilinogen 0.2 mg/dL (Up to 0.2)
[2024-06-07 15:55] LABS: Bacteria Rare HPF (Negative); C & S Indicated? No; Casts Negative LPF (Negative); Crystals Negative HPF (Negative); Epithelial Cells Many HPF (Negative); Mucus Negative (Negative); RBC 0-2 HPF (0-2); WBC 0-2 HPF (0-5)
[2024-06-07 16:14] LABS: COMMENT (LAB VIEW ONLY) 100.01 mg/dL; Microalb ug/mg Crea 36.9 ug/mg Cr
[2024-06-07 16:37] LABS: Calculated LDL 96 mg/dL (<100); Cholesterol 231 mg/dL (<200); HDL Cholesterol 81 mg/dL (40-60); Triglyceride 272 mg/dL (<150); Vitamin B12 511 pg/mL (193-986)
== END 2024-06-07 08:42 | disposition home or self-care (01) ==
LOC: NCHCN 08:41
PROVIDERS: PCP Nurse Practitioner Family; Visit Provider Nurse Practitioner Family
DX: I10 Essential (primary) hypertension (principal); E53.8 Deficiency of other specified B group vitamins
CPT/HCPCS: 80061; 81003; 81015; 82043; 82570; 82607

== ENCOUNTER 2024-08-02 02:14 | Outpatient (CLI) | payer OTHER, SELFPAY ==
--- NOTE | 2024-08-02 | DI.MAMMO_ITS ---
Exam(s) MAMMO SCREENING EXAM: MAMMO SCREENING CLINICAL HISTORY: Screening, Z12.31, Personal h/o cancer but not breast cancer TECHNIQUE: Mammograms were interpreted according to the usual protocol including computer analysis w ith CAD system, tomosynthesis and C-view imaging. COMPARISON: 2017 through 2022 FINDINGS: The breasts are composed of heterogeneously dense fibroglandular densities, Breast Density category C . No suspicious masses or suspicious microcalcifications are seen. No skin thickening or abnormal axillary lymph nodes are seen. There has been no significant change from prior exams. IMPRESSION: BI-RADS Category 1, Negative mammogram. Yearly screening mammography is recommended. Breast Density Category C, heterogeneously Dense. The mammogram demonstrates the patient's breast tissue is dense. Dense breast tissue is very common a nd is not abnormal but dense breast tissue can make it harder to find cancer on a mammogram. Also, de nse breast tissue may increase breast cancer risk. This information about the result of the mammogram report was provided to the patient to raise their awareness. Use this report when you speak with the patient about their risks for breast cancer, which includes their family history. At that time, you may recommend additional screening tests (Ultrasound or MRI) as they might be useful based on their r isk. A negative radiographic report should not delay biopsy if a dominant or clinically suspicious mass is present. Up to ten percent of cancers are not identified on mammography. A negative report may reinforce clinical impression. Adenosis and dense breasts may obscure an underlying neoplasm. False positive reports average 6 to 10%.
== END 2024-08-02 02:34 ==
PROVIDERS: PCP Nurse Practitioner Family; Visit Provider Nurse Practitioner Family
DX: Z12.31 Encounter for screening mammogram for malignant neoplasm of breast (principal); R92.333 Mammographic heterogeneous density, bilateral breasts
CPT/HCPCS: 77063; 77067

== ENCOUNTER 2024-08-12 10:33 | Outpatient (REF) | payer OTHER, SELFPAY ==
[2024-08-12 15:32] LABS: Anion Gap 8.8 mmol/L (3-11); BUN 15 mg/dL (7-18); CO2 30.2 mmol/L (21.0-32.0); CREATININE 1.3 mg/dL (0.55-1.02); Calcium 10.1 mg/dL (8.5-10.1); Chloride 105 mmol/L (98-107); Estimated GFR 49.79 (mL/min/1.73m2); Glucose 100 mg/dL (74-106); Potassium 4.7 mmol/L (3.5-5.1); Sodium 144 mmol/L (136-145)
== END 2024-08-12 10:34 | disposition home or self-care (01) ==
LOC: NCHCN 10:33
PROVIDERS: PCP Nurse Practitioner Family; Visit Provider Nurse Practitioner Family
DX: I10 Essential (primary) hypertension (principal)
CPT/HCPCS: 80048

== ENCOUNTER 2024-10-05 11:26 | Outpatient (REF) | payer OTHER, SELFPAY ==
--- NOTE | 2024-10-05 12:15 | SKI_PTH ---
PATIENT: Nichole Alvarenga LOC: NCN #:[id number] AGE/SX: 53/F ROOM: RE10/05/[address]: Amara Newman : 1970 BED: DIS: 10/05/2024 SPEC #: [id number] RECD: 10/05/24 17:52 STATUS: NATHALIE FLEMING #: [id number] RIVERA: 10/05/24 12:[address]: Amara Newman DEPT: Surgical Specimen RECD BY: Joanna Parry Tissues: 1 - SKIN BIOPSY(SHAVE/PUNCH) 2 - SKIN BIOPSY(SHAVE/PUNCH) Procedures: SKIN LEVEL 4 Comments: [id number]
[2024-10-05 15:02] LABS: Anion Gap 9.6 mmol/L (3-11); BUN 12 mg/dL (7-18); CO2 27.4 mmol/L (21.0-32.0); Calcium 9.7 mg/dL (8.5-10.1); Chloride 106 mmol/L (98-107); Estimated GFR 68.21 (mL/min/1.73m2); Glucose 86 mg/dL (74-106); Potassium 4.4 mmol/L (3.5-5.1); Sodium 143 mmol/L (136-145)
== END 2024-10-05 11:27 | disposition home or self-care (01) ==
LOC: NCHCN 11:26
PROVIDERS: PCP Nurse Practitioner Family; Visit Provider Nurse Practitioner Family
DX: I10 Essential (primary) hypertension (principal)
CPT/HCPCS: 80048; 88305